=== PATIENT | female | born 1965 | race Caucasian/White ===

== ENCOUNTER → 2018-01-25 | Outpatient (CLI) | payer OTHER ==
--- NOTE | 2018-01-25 13:43 | US ---
EXAMINATION TYPE: US pelvis complete transvag DATE OF EXAM: 01/25/2018 COMPARISON: 03/30/16 pelvic ultrasound CLINICAL HISTORY: N93.8 abnormal uterine and vaginal bleeding. TECHNIQUE: Transvaginal (TV) and Transabdominal (TA) . Transabdominal sonographic images of the pel vis were acquired. Transvaginal sonographic images were medically necessary to better assess the fol lowing anatomy: all Date of LMP: 01/22/2018 EXAM MEASUREMENTS: Uterus: 11.8 x 7.2 x 8.2 cm Endometrial Stripe: 2.3 cm Right Ovary: 3.1 x 3.5 x 3.5 cm Left Ovary: not identified 1. Uterus: large, bulky uterus, parenchymal changes probable fibroids 2. Endometrium: thickened 3. Right Ovary: wnl 4. Left Ovary: not identified 5. Bilateral Adnexa: wnl 6. Posterior cul-de-sac: no free fluid Exam noted suboptimal per technologist. Prominent bulky uterus redemonstrated.. IMPRESSION: Probable fibroid uterus with bulky lobulated contour redemonstrated. Fibroids can be bett er evaluated and characterized with dedicated pelvic MRI if desired.
== END | disposition home or self-care (01) ==
LOC: RADUSWWP 13:01
PROVIDERS: ATTEND Obstetrics & Gynecology
DX: N93.8 Other specified abnormal uterine and vaginal bleeding (principal)
CPT/HCPCS: 76830; 76856; 82670; 83001; 83002; 84146; 84443

== ENCOUNTER → 2018-03-23 | Outpatient (CLI) | payer OTHER ==
[2018-03-23 17:49] LABS: HCT 38.6 % (34.0-46.0); HGB 12.6 gm/dL (11.4-16.0); MCH 31.7 pg (25.0-35.0); MCHC 32.7 g/dL (31.0-37.0); MCV 96.9 fL (80.0-100.0); Mean Platelet Volume 7.1; Platelet Count 114 k/uL (150-450); RBC 3.99 m/uL (3.80-5.40); RDW 12.8 % (11.5-15.5); WBC 4.4 k/uL (3.8-10.6)
[2018-03-23 18:18] LABS: Band Neutrophils % 1 %; Basophils # (M) 0.04 k/uL (0-0.2); Eosinophils # (M) 0.26 k/uL (0-0.7); Lymphocytes # (M) 1.19 k/uL (1.0-4.8); Neutrophils % (M) 56 %; Nucleated Red Blood Cells 0 /100 WBC (0-0); Total Cells Counted 100
== END | disposition home or self-care (01) ==
LOC: LABPAT 16:47
PROVIDERS: ATTEND Obstetrics & Gynecology
DX: Z01.818 Encounter for other preprocedural examination (principal); Z01.812 Encounter for preprocedural laboratory examination
CPT/HCPCS: 85025; 93005

== ENCOUNTER 2018-03-29 08:33 | Day surgery (SDC) | payer OTHER ==
[2018-03-27 14:16] VITALS: BMI 33.8
--- NOTE | 2018-03-28 16:41 | P.HPOB ---
History of Present Illness H&P Date: 03/28/18 Chief Complaint: Intermenstrual bleeding history of hyperplasia Geovanna is a 52-year-old female with a prior history of simple hyperplasia. She had stopped the medication for her hyperplasia and was to follow-up and have reevaluation studies but did not do so. However, she has not gone a year without menses and likely this represents dysfunctional bleeding and not postmenopausal bleeding. We'll plan D&C with hysteroscopy with long-term decisions based on findings at time of surgery. Risks/benefits/alternatives to D&C with hysteroscopy were explained to the patient in detail and all questions were answered for her prior to proceeding to the operating room. Past Medical History Past Medical History: GERD/Reflux, Hypertension Additional Past Medical History / Comment(s): hx. migraines, heavy, frequent periods History of Any Multi-Drug Resistant Organisms: None Reported Past Surgical History: Breast Surgery Additional Past Surgical History / Comment(s): breast biopsy, D & C Past Anesthesia/Blood Transfusion Reactions: No Reported Reaction Smoking Status: Never smoker - Past Family History Mother Family Medical History: No Reported History Medications and Allergies Home Medications Medication Instructions Recorded Confirmed Type ALPRAZolam [Xanax] 0.25 mg PO TID PRN 10/06/14 03/27/18 History Nadolol [Corgard] 40 mg PO BID 10/06/14 03/27/18 History Sertraline [Zoloft] 100 mg PO QAM 10/06/14 03/27/18 History Acetaminophen Tab [Tylenol Tab] 500 - 1,000 mg PO Q6HR PRN 03/27/18 03/27/18 History Ibuprofen [Motrin] 200 - 400 mg PO Q6HR PRN 03/27/18 03/27/18 History Omeprazole [PriLOSEC] 20 mg PO AC-BRKFST 03/27/18 03/27/18 History Allergies Allergy/AdvReac Type Severity Reaction Status Date / Time No Known Allergies Allergy Verified 03/27/18 14:07 Exam Osteopathic Statement: *. No significant issues noted on an osteopathic structural exam other than those noted in the History and Physical/Consult. - OBG Physical Exam Breast: both: normal (no masses) Abdomen: bowel sounds normal, no diffuse tenderness, no bruit present, no guarding noted, no hepatomegaly, no splenomegaly, no mass Vulva: both: normal Vagina: normal moisture, no discharge Cervix: no lesion, no discharge Uterus: normal size, normal contour Adnexa: both: normal Anus/Rectum: normal perianal skin, no rectal mass, no hemorrhoids, heme negative
[~2018-03-29 08:33] MED LIST: DEXAMETHASONE SOD PHOSPHATE 10 MG/ML 1 ML VIAL IV ONE; LACTATED RINGERS 1,000 ML IV SCH; MIDAZOLAM 2 MG/2 ML VIAL IV PRN; ONDANSETRON 4 MG/2 ML VIAL IVP ONE; Pre Op ABX Message 1 EACH MISC MISCELLANE ONE; SCOPOLAMINE 1.5MG/72HR PATCH TRANSDERM ONE
[2018-03-29] MEDS ORDERED: KETOROLAC 30 MG/ML 1 ML VIAL ONE (09:29)
[2018-03-29] MEDS ORDERED: LIDOCAINE 1% INJ 10MG/ML (20 ML MDV) ONE (09:29)
[2018-03-29] MEDS ORDERED: PROPOFOL 10 MG/ML 20 ML VIAL IV ONE (09:29)
[2018-03-29] MEDS ORDERED: MIDAZOLAM 2 MG/2 ML VIAL ONE (09:29)
[2018-03-29] MEDS ORDERED: SUCCINYLCHOLINE CHLORIDE VIAL 200 MG/10 ML VIAL IV ONE (09:29)
[2018-03-29] MEDS ORDERED: fentaNYL (PF) 50 MCG/ML 2 ML AMP ONE (09:29)
--- NOTE | 2018-03-29 09:59 | P.OP ---
Date of Procedure: 03/29/18 Preoperative Diagnosis: Menorrhagia with history of simple hyperplasia Postoperative Diagnosis: Same Procedure(s) Performed: D&C with hysteroscopy Anesthesia: ALBA Surgeon: Nikko Michael Estimated Blood Loss (ml): 4 Pathology: other (Uterine curettings) Condition: stable Disposition: same day Operative Findings: Proliferative endometrium Description of Procedure: Patient was taken to the operative suite where a general anesthetic was found be adequate. She was prepped and draped in the normal sterile fashion and placed in dorsal lithotomy position. Initially a weighted speculum was inserted into the vagina and the anterior lip of the cervix was grasped with an Allis clamp. Cervix was dilated and uterus was sounded to 10 cm. Camera was inserted and observations were noted. Once this was accomplished camera was removed and sharp curettings of endometrium were collected placed on Telfa and sent to pathology for evaluation. All instruments were then removed. Sponge, lap, needle counts were correct 2. Patient was then taken to the recovery room in stable and satisfactory condition. Plan - Discharge Summary New Discharge Prescriptions: New Ibuprofen [Motrin] 600 mg PO Q6HR PRN #30 tab PRN Reason: Pain No Action Sertraline [Zoloft] 100 mg PO QAM Nadolol [Corgard] 40 mg PO BID ALPRAZolam [Xanax] 0.25 mg PO TID PRN PRN Reason: Anxiety Ibuprofen [Motrin] 200 - 400 mg PO Q6HR PRN PRN Reason: Pain Acetaminophen Tab [Tylenol Tab] 500 - 1,000 mg PO Q6HR PRN PRN Reason: Pain Omeprazole [PriLOSEC] 20 mg PO AC-BRKFST Discharge Medication List ALPRAZolam [Xanax] 0.25 mg PO TID PRN 10/06/14 [History] Nadolol [Corgard] 40 mg PO BID 10/06/14 [History] Sertraline [Zoloft] 100 mg PO QAM 10/06/14 [History] Acetaminophen Tab [Tylenol Tab] 500 - 1,000 mg PO Q6HR PRN 03/27/18 [History] Ibuprofen [Motrin] 200 - 400 mg PO Q6HR PRN 03/27/18 [History] Omeprazole [PriLOSEC] 20 mg PO AC-BRKFST 03/27/18 [History] Ibuprofen [Motrin] 600 mg PO Q6HR PRN #30 tab 03/29/18 [Rx] Follow up Appointment(s)/Referral(s): Nikko Michael DO [Doctor of Osteopathic Medicine] - 2 Weeks Activity/Diet/Wound Care/Special Instructions: No heavy lifting, limit stairs and driving, and pelvic rest. If any high temperatures, heavy bleeding, or severe pain call my office Discharge Disposition: HOME SELF-CARE
[2018-03-29] MEDS: HYDROmorphone 0.5 MG/0.5 ML SYRINGE IVP PRN ×2 (10:11→10:22)
[2018-03-29 10:14] VITALS: TEMP 97.1
[2018-03-29 11:04] VITALS: RESP 16
[2018-03-29 11:20] VITALS: BP 137/76; PULSE 68
== END 2018-03-29 11:38 | disposition home or self-care (01) ==
LOC: OR 08:33
PROVIDERS: ATTEND Obstetrics & Gynecology
DX: N85.00 Endometrial hyperplasia, unspecified (principal); N92.0 Excessive and frequent menstruation with regular cycle; G43.909 Migraine, unspecified, not intractable, without status migrainosus; K21.9 Gastro-esophageal reflux disease without esophagitis; I10 Essential (primary) hypertension; Z79.899 Other long term (current) drug therapy
CPT/HCPCS: 81025; 88305; 58558; J2250; J0330; J1100; J2405; J2001; J3010; J1885; J2704; J1170

== ENCOUNTER → 2018-06-11 | Outpatient (CLI) | payer OTHER ==
[2018-06-11 12:36] LABS: Partial Thromboplastin Time 26.2 sec (22.0-30.0); Prothrombin Time 10.6 sec (9.0-12.0)
[2018-06-11 12:52] LABS: Basophils % (A) 1 %; Eosinophils # (A) 0.2 k/uL (0-0.7); Eosinophils % (A) 5 %; HCT 42.9 % (34.0-46.0); HGB 13.9 gm/dL (11.4-16.0); Lymphocytes # (A) 1.7 k/uL (1.0-4.8); Lymphocytes % (A) 36 %; MCH 29.9 pg (25.0-35.0); MCHC 32.4 g/dL (31.0-37.0); MCV 92.2 fL (80.0-100.0); Mean Platelet Volume 6.8; Monocytes # (A) 0.3 k/uL (0-1.0); Monocytes % (A) 6 %; Neutrophils # (A) 2.5 k/uL (1.3-7.7); Neutrophils % (A) 51 %; Platelet Count 151 k/uL (150-450); RBC 4.65 m/uL (3.80-5.40); RDW 14.6 % (11.5-15.5); WBC 4.8 k/uL (3.8-10.6)
[2018-06-11 15:54] LABS: Albumin 4.7 g/dL (3.80-4.90); Albumin/Globulin Ratio 1.68 (1.20-2.10); Anion Gap 8.4 mmol/L (4.00-12.00); Calcium 10.4 mg/dL (8.7-10.3); Carbon Dioxide 26.6 mmol/L (21.6-31.8); Globulin 2.8 g/dL (1.6-3.3); Potassium 4.5 mmol/L (3.5-5.5); Total Bilirubin 0.7 mg/dL (0.3-1.2); Total Protein 7.5 g/dL (6.2-8.2)
== END | disposition home or self-care (01) ==
LOC: LABWHC1 11:46
PROVIDERS: ATTEND Obstetrics & Gynecology
DX: N85.02 Endometrial intraepithelial neoplasia [EIN] (principal)
CPT/HCPCS: 36415; 80053; 85025; 85610; 85730

== ENCOUNTER 2018-06-29 13:58 | Emergency (ER) | payer OTHER ==
[2018-06-29 14:20] VITALS: TEMP 98.8
[2018-06-29] MEDS ORDERED: SODIUM CHLORIDE 0.9% 1,000 ML IV STA ×2 (15:25→16:31)
[2018-06-29] MEDS ORDERED: ONDANSETRON 4 MG/2 ML VIAL IVP STA (15:39)
[2018-06-29] MEDS ORDERED: MORPHINE SULFATE 4 MG/ML SYRINGE IVP STA ×2 (15:39→18:54)
--- NOTE | 2018-06-29 16:01 | ED ---
Female Urogenital HPI - General Chief complaint: Vaginal Bleeding Stated complaint: post op bleeding Time Seen by Provider: 06/29/18 15:23 Source: patient, RN notes reviewed, old records reviewed Mode of arrival: EMS Limitations: no limitations - History of Present Illness Initial comments: This is a 52-year-old female the ER for evaluation. Patient resents today for evaluation regards to vaginal bleeding. Patient is postop of a hysterectomy. No blood thinners. No abdominal pain no fevers. No nausea vomiting or diarrhea. Patient states she has some significant bleeding in the toilet while going to the bathroom earlier today, passed a few clots and the bleeding is pretty much stopped on arrival to emergency room. She really doesn't feel lightheaded and dizzy currently has no complaints. No complaints of shortness of breath. Patient did admit to getting a little sweaty during the event MD Complaint: vaginal bleeding (Postoperatively) -: hour(s) Location: other (No pain) Severity: moderate Severity scale (1-10): 3 Quality: cramping (Similar to her postop pain) Consistency: now resolved Worsens with: none Patient : No Associated Symptoms: vaginal bleeding - Related Data Home Medications Medication Instructions Recorded Confirmed Nadolol [Corgard] 40 mg PO BID 10/06/14 06/29/18 Sertraline [Zoloft] 100 mg PO QAM 10/06/14 06/29/18 Omeprazole [PriLOSEC] 20 mg PO AC-BRKFST 03/27/18 06/29/18 Allergies Allergy/AdvReac Type Severity Reaction Status Date / Time No Known Allergies Allergy Verified 06/29/18 14:27 Review of Systems ROS Statement: Those systems with pertinent positive or pertinent negative responses have been documented in the HPI. ROS Other: All systems not noted in ROS Statement are negative. Past Medical History Past Medical History: GERD/Reflux, Hypertension Additional Past Medical History / Comment(s): hx. migraines, heavy, frequent periods History of Any Multi-Drug Resistant Organisms: None Reported Past Surgical History: Breast Surgery Additional Past Surgical History / Comment(s): breast biopsy, D & C Past Anesthesia/Blood Transfusion Reactions: No Reported Reaction Past Psychological History: Anxiety, Depression Smoking Status: Never smoker - Past Family History Mother Family Medical History: No Reported History General Exam Limitations: no limitations General appearance: alert, in no apparent distress Head exam: Present: atraumatic, normocephalic, normal inspection Eye exam: Present: normal appearance, PERRL, EOMI. Absent: scleral icterus, conjunctival injection, periorbital swelling ENT exam: Present: normal exam, mucous membranes moist Neck exam: Present: normal inspection. Absent: tenderness, meningismus, lymphadenopathy Respiratory exam: Present: normal lung sounds bilaterally. Absent: respiratory distress, wheezes, rales, rhonchi, stridor Cardiovascular Exam: Present: regular rate, normal rhythm, normal heart sounds. Absent: systolic murmur, diastolic murmur, rubs, gallop, clicks GI/Abdominal exam: Present: soft, normal bowel sounds. Absent: distended, tenderness, guarding, rebound, rigid Extremities exam: Present: normal inspection, full ROM, normal capillary refill. Absent: tenderness, pedal edema, joint swelling, calf tenderness Back exam: Present: normal inspection Neurological exam: Present: alert, oriented X3, CN II-XII intact Psychiatric exam: Present: normal affect, normal mood Skin exam: Present: warm, dry, intact, normal color. Absent: rash Course Vital Signs 06/29/18 06/29/18 06/29/18 14:13 14:17 14:30 Temperature 98.8 F Pulse Rate 64 67 Respiratory 20 Rate Blood Pressure 122/60 122/60 122/60 O2 Sat by Pulse 98 98 99 Oximetry 06/29/18 06/29/18 06/29/18 15:00 15:30 16:00 Temperature Pulse Rate 71 67 66 Respiratory Rate Blood Pressure 98/63 113/77 133/57 O2 Sat by Pulse 98 100 99 Oximetry 06/29/18 06/29/18 06/29/18 16:30 17:00 17:30 Temperature Pulse Rate 56 L 58 L Respiratory Rate Blood Pressure 145/73 116/59 130/67 O2 Sat by Pulse 100 Oximetry 06/29/18 06/29/18 18:00 18:30 Temperature Pulse Rate 66 63 Respiratory Rate Blood Pressure 137/80 122/69 O2 Sat by Pulse 99 97 Oximetry - Reevaluation(s) Reevaluation #1: 06/29/18 18:48 Medical record is reviewed Reevaluation #2: 06/29/18 18:48 Patient is asymptomatic Reevaluation #3: 06/29/18 18:48 Patient has not had any significant bleeding here in the ER Medical Decision Making - Medical Decision Making 52 female the ER with postop vaginal bleeding. Patient is postop of a hysterectomy. No pain no fever labwork is normal he will is stable vital signs are normal and stable. CT negative and patient can be discharged home - Lab Data Result diagrams: 06/29/18 14:26 06/29/18 14:26 Lab Results 06/29/18 06/29/18 06/29/18 Range/Units 14:26 14:26 14:26 WBC 9.8 (3.8-10.6) k/uL RBC 3.78 L (3.80-5.40) m/uL Hgb 11.4 (11.4-16.0) gm/dL Hct 34.2 (34.0-46.0) % MCV 90.5 (80.0-100.0) fL MCH 30.2 (25.0-35.0) pg MCHC 33.4 (31.0-37.0) g/dL RDW 14.7 (11.5-15.5) % Plt Count 195 (150-450) k/uL Neutrophils % 77 % Lymphocytes % 16 % Monocytes % 3 % Eosinophils % 2 % Basophils % 0 % Neutrophils # 7.5 (1.3-7.7) k/uL Lymphocytes # 1.5 (1.0-4.8) k/uL Monocytes # 0.3 (0-1.0) k/uL Eosinophils # 0.2 (0-0.7) k/uL Basophils # 0.0 (0-0.2) k/uL PT (9.0-12.0) sec INR (<1.2) APTT (22.0-30.0) sec Sodium 136 L (137-145) mmol/L Potassium 4.9 (3.5-5.1) mmol/L Chloride 101 (98-107) mmol/L Carbon Dioxide 22 (22-30) mmol/L Anion Gap 13 mmol/L BUN 16 (7-17) mg/dL Creatinine 0.59 (0.52-1.04) mg/dL Est GFR (CKD-EPI)AfAm >90 (>60 ml/min/1.73 sqM) Est GFR (CKD-EPI)NonAf >90 (>60 ml/min/1.73 sqM) Glucose 261 H (74-99) mg/dL Plasma Lactic Acid Andrei (0.7-2.0) mmol/L Calcium 9.6 (8.4-10.2) mg/dL Phosphorus 5.4 H (2.5-4.5) mg/dL Magnesium 1.6 (1.6-2.3) mg/dL Total Bilirubin 0.9 (0.2-1.3) mg/dL AST 219 H (14-36) U/L ALT 154 H (9-52) U/L Alkaline Phosphatase 131 H (38-126) U/L Total Creatine Kinase <20 L (30-135) U/L CK-MB (CK-2) <0.2 (0.0-2.4) ng/mL CK-MB (CK-2) Rel Index Troponin I <0.012 (0.000-0.034) ng/mL Total Protein 7.0 (6.3-8.2) g/dL Albumin 3.8 (3.5-5.0) g/dL Urine Color Urine Appearance (Clear) Urine pH (5.0-8.0) Ur Specific Shiner (1.001-1.035) Urine Protein (Negative) Urine Glucose (UA) (Negative) Urine Ketones (Negative) Urine Blood (Negative) Urine Nitrite (Negative) Urine Bilirubin (Negative) Urine Urobilinogen (<2.0) mg/dL Ur Leukocyte Esterase (Negative) Urine RBC (0-5) /hpf Urine WBC (0-5) /hpf Ur Squamous Epith Cells (0-4) /hpf Hyaline Casts (0-2) /lpf Urine Mucus (None) /hpf Blood Type Blood Type Recheck Antibody Screen Spec Expiration Date 06/29/18 06/29/18 06/29/18 Range/Units 14:26 14:26 14:26 WBC (3.8-10.6) k/uL RBC (3.80-5.40) m/uL Hgb (11.4-16.0) gm/dL Hct (34.0-46.0) % MCV (80.0-100.0) fL MCH (25.0-35.0) pg MCHC (31.0-37.0) g/dL RDW (11.5-15.5) % Plt Count (150-450) k/uL Neutrophils % % Lymphocytes % % Monocytes % % Eosinophils % % Basophils % % Neutrophils # (1.3-7.7) k/uL Lymphocytes # (1.0-4.8) k/uL Monocytes # (0-1.0) k/uL Eosinophils # (0-0.7) k/uL Basophils # (0-0.2) k/uL PT 10.6 (9.0-12.0) sec INR 1.0 (<1.2) APTT 24.3 (22.0-30.0) sec Sodium (137-145) mmol/L Potassium (3.5-5.1) mmol/L Chloride (98-107) mmol/L Carbon Dioxide (22-30) mmol/L Anion Gap mmol/L BUN (7-17) mg/dL Creatinine (0.52-1.04) mg/dL Est GFR (CKD-EPI)AfAm (>60 ml/min/1.73 sqM) Est GFR (CKD-EPI)NonAf (>60 ml/min/1.73 sqM) Glucose (74-99) mg/dL Plasma Lactic Acid Andrei 4.2 H* (0.7-2.0) mmol/L Calcium (8.4-10.2) mg/dL Phosphorus (2.5-4.5) mg/dL Magnesium (1.6-2.3) mg/dL Total Bilirubin (0.2-1.3) mg/dL AST (14-36) U/L ALT (9-52) U/L Alkaline Phosphatase (38-126) U/L Total Creatine Kinase (30-135) U/L CK-MB (CK-2) (0.0-2.4) ng/mL CK-MB (CK-2) Rel Index Troponin I (0.000-0.034) ng/mL Total Protein (6.3-8.2) g/dL Albumin (3.5-5.0) g/dL Urine Color Urine Appearance (Clear) Urine pH (5.0-8.0) Ur Specific Shiner (1.001-1.035) Urine Protein (Negative) Urine Glucose (UA) (Negative) Urine Ketones (Negative) Urine Blood (Negative) Urine Nitrite (Negative) Urine Bilirubin (Negative) Urine Urobilinogen (<2.0) mg/dL Ur Leukocyte Esterase (Negative) Urine RBC (0-5) /hpf Urine WBC (0-5) /hpf Ur Squamous Epith Cells (0-4) /hpf Hyaline Casts (0-2) /lpf Urine Mucus (None) /hpf Blood Type A Positive Blood Type Recheck No Antibody Screen NEGATIVE Spec Expiration Date 07/02/2018 - 232506/29/18 Range/Units 17:35 WBC (3.8-10.6) k/uL RBC (3.80-5.40) m/uL Hgb (11.4-16.0) gm/dL Hct (34.0-46.0) % MCV (80.0-100.0) fL MCH (25.0-35.0) pg MCHC (31.0-37.0) g/dL RDW (11.5-15.5) % Plt Count (150-450) k/uL Neutrophils % % Lymphocytes % % Monocytes % % Eosinophils % % Basophils % % Neutrophils # (1.3-7.7) k/uL Lymphocytes # (1.0-4.8) k/uL Monocytes # (0-1.0) k/uL Eosinophils # (0-0.7) k/uL Basophils # (0-0.2) k/uL PT (9.0-12.0) sec INR (<1.2) APTT (22.0-30.0) sec Sodium (137-145) mmol/L Potassium (3.5-5.1) mmol/L Chloride (98-107) mmol/L Carbon Dioxide (22-30) mmol/L Anion Gap mmol/L BUN (7-17) mg/dL Creatinine (0.52-1.04) mg/dL Est GFR (CKD-EPI)AfAm (>60 ml/min/1.73 sqM) Est GFR (CKD-EPI)NonAf (>60 ml/min/1.73 sqM) Glucose (74-99) mg/dL Plasma Lactic Acid Andrei (0.7-2.0) mmol/L Calcium (8.4-10.2) mg/dL Phosphorus (2.5-4.5) mg/dL Magnesium (1.6-2.3) mg/dL Total Bilirubin (0.2-1.3) mg/dL AST (14-36) U/L ALT (9-52) U/L Alkaline Phosphatase (38-126) U/L Total Creatine Kinase (30-135) U/L CK-MB (CK-2) (0.0-2.4) ng/mL CK-MB (CK-2) Rel Index Troponin I (0.000-0.034) ng/mL Total Protein (6.3-8.2) g/dL Albumin (3.5-5.0) g/dL Urine Color Yellow Urine Appearance Clear (Clear) Urine pH 6.5 (5.0-8.0) Ur Specific Shiner 1.013 (1.001-1.035) Urine Protein Negative (Negative) Urine Glucose (UA) Negative (Negative) Urine Ketones Negative (Negative) Urine Blood Moderate H (Negative) Urine Nitrite Negative (Negative) Urine Bilirubin Negative (Negative) Urine Urobilinogen <2.0 (<2.0) mg/dL Ur Leukocyte Esterase Small H (Negative) Urine RBC 89 H (0-5) /hpf Urine WBC 2 (0-5) /hpf Ur Squamous Epith Cells <1 (0-4) /hpf Hyaline Casts 13 H (0-2) /lpf Urine Mucus Rare H (None) /hpf Blood Type Blood Type Recheck Antibody Screen Spec Expiration Date - EKG Data -: EKG Interpreted by Me (EKG shows sinus bradycardia rate of 58, OR 1:30, QRS 80, QTC 426) - Radiology Data Radiology results: report reviewed (CT abdomen pelvis is negative for acute disease), image reviewed Disposition Clinical Impression: Vaginal bleeding, Postoperative vaginal bleeding Disposition: HOME SELF-CARE Condition: Good Instructions: Postoperative Bleeding (ED) Is patient prescribed a controlled substance at d/c from ED?: No Referrals: Bubba Cruz MD [Primary Care Provider] - 1-2 days
[2018-06-29 16:03] LABS: Basophils % (A) 0 %; Eosinophils # (A) 0.2 k/uL (0-0.7); Eosinophils % (A) 2 %; HCT 34.2 % (34.0-46.0); HGB 11.4 gm/dL (11.4-16.0); Lymphocytes # (A) 1.5 k/uL (1.0-4.8); Lymphocytes % (A) 16 %; MCH 30.2 pg (25.0-35.0); MCHC 33.4 g/dL (31.0-37.0); MCV 90.5 fL (80.0-100.0); Monocytes # (A) 0.3 k/uL (0-1.0); Monocytes % (A) 3 %; Neutrophils # (A) 7.5 k/uL (1.3-7.7); Neutrophils % (A) 77 %; Platelet Count 195 k/uL (150-450); RBC 3.78 m/uL (3.80-5.40); RDW 14.7 % (11.5-15.5); WBC 9.8 k/uL (3.8-10.6)
[2018-06-29 16:15] LABS: ALT 154 U/L (9-52); AST 219 U/L (14-36); Albumin 3.8 g/dL (3.5-5.0); Alkaline Phosphatase 131 U/L (38-126); Anion Gap 13 mmol/L; Blood Urea Nitrogen 16 mg/dL (7-17); Calcium 9.6 mg/dL (8.4-10.2); Carbon Dioxide 22 mmol/L (22-30); Chloride 101 mmol/L (98-107); Glucose 261 mg/dL (74-99); Magnesium 1.6 mg/dL (1.6-2.3); Phosphorus 5.4 mg/dL (2.5-4.5); Potassium 4.9 mmol/L (3.5-5.1); Sodium 136 mmol/L (137-145); Total Bilirubin 0.9 mg/dL (0.2-1.3)
[2018-06-29 16:18] LABS: Creatine Kinase <20 U/L (30-135); Partial Thromboplastin Time 24.3 sec (22.0-30.0); Prothrombin Time 10.6 sec (9.0-12.0)
[2018-06-29 16:31] LABS: Creatine Kinase MB <0.2 ng/mL (0.0-2.4); Troponin I <0.012 ng/mL (0.000-0.034)
[2018-06-29 17:58] LABS: Appearance,Urine Clear (Clear); Bilirubin,Urine Negative (Negative); Blood,Urine Moderate (Negative); Color,Urine Yellow; Glucose,Urine (UA) Negative (Negative); Hyaline Casts,Urine 13 /lpf (0-2); Ketones,Urine Negative (Negative); Leukocyte Esterase,Urine Small (Negative); Mucus,Urine Rare /hpf; Nitrite,Urine Negative (Negative); PH, Urine 6.5 (5.0-8.0); Protein,Urine Negative (Negative); RBC,Urine 89 /hpf (0-5); Specific Gravity,Urine 1.013 (1.001-1.035); Squamous Epithelial Cell,Urine <1 /hpf (0-4); Urobilinogen,Urine <2.0 mg/dL (<2.0); WBC,Urine 2 /hpf (0-5)
[2018-06-29 18:40] VITALS: BP 122/69
[2018-06-29 19:25] VITALS: PULSE 64; RESP 18
--- NOTE | 2018-06-29 19:39 | CT ---
EXAMINATION TYPE: CT abdomen pelvis w con DATE OF EXAM: 06/29/2018 COMPARISON: None INDICATION: Post op bleeding after hysterectomy. DLP: 1243.9 mGycm, Automated exposure control for dose reduction was used. CONTRAST: 100ml mL of Isovue 300. Study performed without Oral Contrast TECHNIQUE: Axial images were obtained from above the diaphragm to the pubic rami in the axial plane a t 5 mm thick sections. Reconstructed images are reviewed on the computer in the coronal plane. FINDINGS: Limited CT sections are obtained the lung bases. The lung bases are clear. CT ABDOMEN: Liver: There is mild diffuse fatty infiltration to the liver. Spleen: Normal Pancreas: Normal Adrenal glands: The adrenal glands are normal. Gallbladder: Normal Kidneys: No masses are evident. No hydronephrosis is present. No cysts are present. Delayed images were obtained through the kidneys, which remain unremarkable. Aorta: Vascular calcification is within the aorta. Inferior vena cava: Normal. CT PELVIS: Loops of bowel within the abdomen and pelvis are normal. There are scattered diverticuli within t he sigmoid colon. Appendix: Normal as visualized. Urinary bladder: Normal. Genitourinary structures: Uterus is surgically absent. At the vaginal cuff there is an air collection with a small amount of lower density in the dependent portion. A small seroma could be considered at this site. Mild postsurgical changes are present adjacent. Suspicious wall thickening to suggest abs cess is not identified. This area measures maximum 4.6 x 3.6 cm. Adnexal regions appear unremarkable. The ovaries are not identified. Osseous structures: No suspicious lytic or sclerotic lesions. IMPRESSIONS: 1. Suspected postsurgical change with possible seroma with an air-fluid level in the vaginal cuff re gion. Abscess is considered less likely at this time. Follow-up can be performed as clinically indica geovanna.
[2018-06-29] MEDS ORDERED: Acetaminophen-Codeine 300-30mg TAB PO STA (20:13)
[2018-06-29] MEDS ORDERED: ACET/COD 300 MG/30 MG STARTER PACK 6 TAB BTL PO STA (20:13)
== END 2018-06-29 20:34 | disposition home or self-care (01) ==
LOC: EC 13:58
DX: N99.820 Postprocedural hemorrhage of a genitourinary system organ or structure following a genitourinary system procedure (principal); K21.9 Gastro-esophageal reflux disease without esophagitis; I10 Essential (primary) hypertension; F41.9 Anxiety disorder, unspecified; F32.9 Major depressive disorder, single episode, unspecified; Z79.899 Other long term (current) drug therapy; Z90.710 Acquired absence of both cervix and uterus; Z98.890 Other specified postprocedural states
CPT/HCPCS: 36415; 93005; 86900; 86901; 80053; 82550; 82553; 83605; 83735; 84100; 84484; 85025; 85610; 85730; 86850; 81001; 87086; 74177; 99285; 96374; 96375; 96376; 96361 ×2; J2270; J2405; Q9967

== ENCOUNTER 2018-08-27 18:33 | Emergency (ER) | payer OTHER ==
[2018-08-27 18:57] VITALS: TEMP 98.3
[2018-08-27] MEDS ORDERED: HYDROcodone/APAP 7.5-325MG 1 EACH TAB PO ONE (19:47)
[2018-08-27 20:02] LABS: Anisocytosis Slight; Basophils % (A) 0 %; Eosinophils # (A) 0.2 k/uL (0-0.7); Eosinophils % (A) 3 %; HCT 35.6 % (34.0-46.0); HGB 10.9 gm/dL (11.4-16.0); Hypochromasia Marked; Lymphocytes # (A) 1.3 k/uL (1.0-4.8); Lymphocytes % (A) 21 %; MCH 24.5 pg (25.0-35.0); MCHC 30.6 g/dL (31.0-37.0); Mean Platelet Volume 7.3; Monocytes # (A) 0.3 k/uL (0-1.0); Monocytes % (A) 5 %; Neutrophils # (A) 4.4 k/uL (1.3-7.7); Neutrophils % (A) 69 %; Platelet Count 187 k/uL (150-450); Poikilocytosis Slight; RBC 4.44 m/uL (3.80-5.40); RDW 16.2 % (11.5-15.5); WBC 6.3 k/uL (3.8-10.6)
[2018-08-27 20:08] LABS: MCV 80.1 fL (80.0-100.0)
[2018-08-27 20:16] LABS: ALT 178 U/L (9-52); AST 173 U/L (14-36); Albumin 4.5 g/dL (3.5-5.0); Alkaline Phosphatase 143 U/L (38-126); Anion Gap 12 mmol/L; Blood Urea Nitrogen 14 mg/dL (7-17); Calcium 9.8 mg/dL (8.4-10.2); Carbon Dioxide 23 mmol/L (22-30); Chloride 101 mmol/L (98-107); Glucose 141 mg/dL (74-99); Potassium 4.8 mmol/L (3.5-5.1); Sodium 136 mmol/L (137-145); Total Protein 8.1 g/dL (6.3-8.2)
--- NOTE | 2018-08-27 20:22 | CT ---
EXAMINATION TYPE: CT brain abner deshpande DATE OF EXAM: 08/27/2018 COMPARISON: NONE HISTORY: Posterior head/neck pain after fall injury CT DLP: 1502.8 mGycm. Automated Exposure Control for Dose Reduction was Utilized. TECHNIQUE: CT scan of the head and cervical spine are performed without contrast. FINDINGS: There is no acute intracranial hemorrhage or midline shift identified. Mild generalized a ge-related atrophy is present. The globes are intact and the visualized sinuses are clear. There is moderate to large size high acute occipital scalp hematoma extending to right and left of midline see n axial images 45 through 57. The calvarium is intact. Cervical spine is visualized in its entirety from C1 through upper thoracic levels and demonstrates s traightened alignment without evidence of acute fracture or dislocation. Prevertebral soft tissue ap pears within normal limits. The C1-C2 articulation is within normal limits on the coronal images. V ertebral body heights and disc space heights are maintained. Axial images show no suspicious abnormal ity. Lung apices are clear. Thyroid gland is normal in size. IMPRESSION: 1. There is no acute fracture or dislocation evident in the cervical spine. 2. No acute intracranial hemorrhage or midline shift is seen. Moderate to large size high posterior a cute scalp hematoma noted.
--- NOTE | 2018-08-27 20:36 | XR ---
EXAMINATION TYPE: XR chest 2V DATE OF EXAM: 08/27/2018 COMPARISON: NONE HISTORY: Chest and right-sided rib pain. TECHNIQUE: Frontal and lateral views of the chest are obtained. FINDINGS: Overlying EKG leads are seen. There is no focal air space opacity, pleural effusion, or pne umothorax seen. The cardiac silhouette size is enlarged. The osseous structures are intact. IMPRESSION: Cardiomegaly without acute pulmonary process.
[2018-08-27] MEDS ORDERED: hydrALAZINE HCL 20 MG/ML 1 ML VIAL IVP STA ×2 (20:37→21:39)
--- NOTE | 2018-08-27 20:38 | XR ---
EXAMINATION TYPE: XR lumbar spine 2 or 3V DATE OF EXAM: 08/27/2018 CLINICAL HISTORY: Low back pain after slip and fall injury. TECHNIQUE: Frontal and lateral images of the lumbar spine are obtained. 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 There are 5 lumbar type vertebral vicki s identified given above assumption. The lumbar spine shows satisfactory alignment without evidence of acute fracture or dislocation. Vertebral body heights and disk space heights are within normal alfredo its. Vascular calcification overlying abdominal aorta is noted. IMPRESSION: No acute fracture or dislocation is seen in the lumbar spine.
[2018-08-27] MEDS ORDERED: ALPRAZolam 1 MG TAB PO STA (21:39)
--- NOTE | 2018-08-27 21:39 | ED ---
Fall HPI - General Chief Complaint: Fall Stated Complaint: FALL, HEAD INJURY Time Seen by Provider: 08/27/18 19:07 Source: patient Mode of arrival: ambulatory - History of Present Illness Initial Comments: 53-year-old female with past medical history of hypertension and anxiety pr esenting today for chief complaint of fall. Patient states yesterday evening she slipped on ice hitting the back of her head. Patient denies loss of consciousness. Patient states she did have a large hematoma. Patient states she was initially dizzy. She states this is since subsided however she has experiencing additional episode when she was turning in bed. Patient denies any neck pain. Patient states she feels she clenched her jaw when she fell she states she almost bit her tongue- and since fall her jaw b/l has been sore with opening and closing. She admits to low back pain. Patient denies any radiation of the pain down her legs. Patient denies any loss of bowel bladder control, urinary retention or loss sensation or muscle weakness of the lower extremities. Patient denies any diplopia, vision loss or changes, she denies any muscle weakness of the upper or lower extremities, nausea vomiting, trauma to the chest, denies upper back pain, chest pain, dyspnea, dsypnea upon exertion. Upon arrival patient is a appearing well. Patient denies any pain of the extremities or injury. Vital signs reveal elevation of blood pressure. Patient states she did take her blood pressure medication today however she states she has increased anxiety and is out of her prescription of xanax. - Related Data Home Medications Medication Instructions Recorded Confirmed Nadolol [Corgard] 40 mg PO BID 10/06/14 08/27/18 Acetaminophen Tab [Tylenol] 650 mg PO Q8H 08/27/18 08/27/18 Sertraline [Zoloft] 100 mg PO BID 08/27/18 08/27/18 Previous Rx's Medication Instructions Recorded ALPRAZolam [Xanax] 0.25 mg PO BID PRN 3 Days #6 tab 08/27/18 Allergies Allergy/AdvReac Type Severity Reaction Status Date / Time No Known Allergies Allergy Verified 08/27/18 20:10 Review of Systems ROS Statement: Those systems with pertinent positive or pertinent negative responses have been documented in the HPI. ROS Other: All systems not noted in ROS Statement are negative. Past Medical History Past Medical History: GERD/Reflux, Hypertension Additional Past Medical History / Comment(s): hx. migraines, heavy, frequent periods History of Any Multi-Drug Resistant Organisms: None Reported Past Surgical History: Breast Surgery Additional Past Surgical History / Comment(s): breast biopsy, D & C Past Anesthesia/Blood Transfusion Reactions: No Reported Reaction Past Psychological History: Anxiety Smoking Status: Never smoker Past Alcohol Use History: Occasional Past Drug Use History: None Reported - Past Family History Mother Family Medical History: No Reported History General Exam - General Exam Comments Initial Comments: General: The patient is awake and alert, in no distress, and does not appear acutely ill. Eye: +3 mm pupils are equal, round and reactive to light, extra-ocular movement s are intact. No nystagmus. There is normal conjunctiva bilaterally. No signs of icterus. Ears, nose, mouth and throat: There are moist mucous membranes and no oral lesi ons. Tympanic membranes within normal limits bilaterally. Neck: The neck is supple, there is no tenderness or JVD. Cardiovascular: There is a regular rate and rhythm. No murmur, rub or gallop is appreciated. Respiratory: Lungs are clear to auscultation, respirations are non-labored, breath sounds are equal. No wheezes, stridor, rales, or rhonchi. Lung sounds present in all huynh. Gastrointestinal: Soft, non-distended, non-tender abdomen without masses or organomegaly noted. There is no rebound or guarding present. Bowel sounds are unremarkable. Musculoskeletal: Normal ROM, no tenderness. Strength 5/5. Sensation intact. Radial pulses equal bilaterally 2+. Neurological: A&O x 3. CN II-XII intact, memory intact to immediately, intermediate and chcf recall. Able to follow simple verbal. Able to name a common object (pen). High quality, labial (pa) and lingual (la) speLight touch and temperature sensation present over the face, chest, abdomen, back, UE bilaterally, and LE bilaterally. Able to localize point during point localization b/l and extinction. No visible bulk atrophy, hypertrophy, fasciculations, or myoclonus of the UE or LE b/l. Full PROM in UE and LE b/l. Bilateral muscle strength 5/5 for the following muscles: deltoid, biceps, triceps, brachioradialis, wrist extensors/flexor, hip flexor, hip abducto rs/adductors, hamstrings, quadriceps, feet dorsiflexors/plantar flexors. Finger to nose, finger to the examiners finger, and heel to malone coordinated and accurate b/l. Coordinated and even demonstration of hand flip, finger to thumb, and toe tap b/l. Gait is coordinated and even in stride. Maintains balance with monopedal stance. (-) Romberg. (-) pronator drift. No nuchal rigidity. Skin: Skin is warm and dry and no rashes or lesions are noted. Large hematoma of the parietal/occipital region. No raccoon or Melgar sign. No crepitus palpation of the scalp. No laceration or abrasion. Psychiatric: Cooperative, appropriate mood & affect, normal judgment. Limitations: no limitations Course Vital Signs 08/27/18 08/27/18 08/27/18 18:53 19:35 20:33 Temperature 98.3 F Pulse Rate 66 67 61 Respiratory 18 18 15 Rate Blood Pressure 202/105 193/119 200/104 O2 Sat by Pulse 99 98 99 Oximetry 08/27/18 08/27/18 08/27/18 21:02 21:56 23:00 Temperature Pulse Rate 66 67 78 Respiratory 16 18 16 Rate Blood Pressure 184/101 186/111 135/70 O2 Sat by Pulse 99 99 97 Oximetry Medical Decision Making - Medical Decision Making Laboratory studies unremarkable, troponin negative. EKG within normal limits. Chest x-ray negative for acute osseous process. Lumbar films no acute osseous injury. CT of the brain and C-spine reveal hematoma no other acute abnormalities. Patient appears well, and blood pressure remains elevated, no other review of systems positive. No signs of end organ damage. Pt stats she is anxious at the doctors. Given xanax. At this time feel patient has concussion as well as soft tissue injury. Patient be discharged with instruction to use ibuprofen and Tylenol palpation and follow-up with primary care provider. Patient requesting refill of Xanax. Patient given 3 day supply. Patient ready for discharge, discussed case with attending provider Dr. Cramer who is agreeable with plan and discharge. Patient aware of return parameters, denies questions at this time. Last recorded BP on space labs witnessed in person upon discssing d/c with patient *163/89. - Lab Data Result diagrams: 08/27/18 19:09 03/11/19 19:09 Lab Results 08/27/18 08/27/18 08/27/18 Range/Units 19:09 19: 19:09 WBC 6.3 (3.8-10.6) k/uL RBC 4.44 (3.80-5.40) m/uL Hgb 10.9 L (11.4-16.0) gm/dL Hct 35.6 (34.0-46.0) % MCV 80.1 D (80.0-100.0) fL MCH 24.5 L (25.0-35.0) pg MCHC 30.6 L (31.0-37.0) g/dL RDW 16.2 H (11.5-15.5) % Plt Count 187 (150-450) k/uL Neutrophils % 69 % Lymphocytes % 21 % Monocytes % 5 % Eosinophils % 3 % Basophils % 0 % Neutrophils # 4.4 (1.3-7.7) k/uL Lymphocytes # 1.3 (1.0-4.8) k/uL Monocytes # 0.3 (0-1.0) k/uL Eosinophils # 0.2 (0-0.7) k/uL Basophils # 0.0 (0-0.2) k/uL Hypochromasia Marked Poikilocytosis Slight Anisocytosis Slight Sodium 136 L (137-145) mmol/L Potassium 4.8 (3.5-5.1) mmol/L Chloride 101 (98-107) mmol/L Carbon Dioxide 23 (22-30) mmol/L Anion Gap 12 mmol/L BUN 14 (7-17) mg/dL Creatinine 0.45 L (0.52-1.04) mg/dL Est GFR (CKD-EPI)AfAm >90 (>60 ml/min/1.73 sqM) Est GFR (CKD-EPI)NonAf >90 (>60 ml/min/1.73 sqM) Glucose 141 H (74-99) mg/dL Calcium 9.8 (8.4-10.2) mg/dL Total Bilirubin 1.0 (0.2-1.3) mg/dL AST 173 H (14-36) U/L ALT 178 H (9-52) U/L Alkaline Phosphatase 143 H (38-126) U/L Troponin I <0.012 (0.000-0.034) ng/mL Total Protein 8.1 (6.3-8.2) g/dL Albumin 4.5 (3.5-5.0) g/dL - EKG Data EKG Comments: A 12-lead EKG was performed and shows the following: Rate is 61bpm, and rhythm is normal sinus. There are normal QRS complexes and normal R-wave progression. ST segments have no elevation or depression, and SC segments appear normal. SC interval 152 ms, QRS duration 78 ms, QT/QTC 412/414 ms. EKG interpreted by myself as well as attending provider Dr. Cramer Disposition Clinical Impression: Fall due to ice or snow, Head injury, Elevated blood pressure reading, Concussion Disposition: HOME SELF-CARE Condition: Good Instructions (If sedation given, give patient instructions): Concussion (ED), Head Injury (ED) Additional Instructions: Please use medication as discussed. Please follow-up with family doctor in the next 2 days, for reevaluation and blood pressure re-check. Please return to emergency room if the symptoms increase or worsen or for any other concerns. Prescriptions: ALPRAZolam [Xanax] 0.25 mg PO BID PRN 3 Days #6 tab PRN Reason: Anxiety Is patient prescribed a controlled substance at d/c from ED?: No Referrals: Bubba Cruz MD [Primary Care Provider] - 1-2 days Time of Disposition: 22:38
[2018-08-27 23:02] VITALS: BP 135/70; PULSE 78; RESP 16
== END 2018-08-27 23:00 | disposition home or self-care (01) ==
LOC: EC 18:33
DX: S06.0X0A Concussion without loss of consciousness, initial encounter (principal); I10 Essential (primary) hypertension; M54.5 Low back pain; F41.9 Anxiety disorder, unspecified; Z86.69 Personal history of other diseases of the nervous system and sense organs; Z98.890 Other specified postprocedural states; Z79.899 Other long term (current) drug therapy; W00.0XXA Fall on same level due to ice and snow, initial encounter
CPT/HCPCS: 36415; 93005; 80053; 84484; 85025; 72100; 71046; 72125; 70450; 99284; 96374; 96376; J0360

== ENCOUNTER → 2019-03-20 | Outpatient (CLI) | payer OTHER ==
[2019-03-20 18:38] LABS: African American GFR (CKD) 114.6 (60.0-200.0); Anion Gap 10.7 mmol/L (4.00-12.00); BUN/Creat Ratio 15.71 Ratio (12.00-20.00); Calcium 9.8 mg/dL (8.7-10.3); Carbon Dioxide 28.3 mmol/L (21.6-31.8); Potassium 4.6 mmol/L (3.5-5.5)
[2019-03-20 21:26] LABS: Hemoglobin A1C 12.9 % (4.0-6.0)
== END | disposition home or self-care (01) ==
LOC: LABWHC1 11:38
PROVIDERS: ATTEND Family Medicine
DX: E11.3299 Type 2 diabetes mellitus with mild nonproliferative diabetic retinopathy without macular edema, unspecified eye (principal)
CPT/HCPCS: 36415; 80048; 83036

== ENCOUNTER 2019-06-04 15:36 | Observation (INO) | payer OTHER, BC ==
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
[2019-06-04] MEDS ORDERED: IBUPROFEN 600 MG TAB PO STA (18:28)
[2019-06-04] MEDS ORDERED: ACET/COD 300 MG/30 MG STARTER PACK 6 TAB BTL PO STA (18:34)
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
[2019-06-04 20:49] LABS: Basophils % (A) 0 %; Eosinophils # (A) 0.1 k/uL (0-0.7); Eosinophils % (A) 3 %; HCT 33.8 % (34.0-46.0); HGB 10.9 gm/dL (11.4-16.0); Lymphocytes # (A) 0.9 k/uL (1.0-4.8); Lymphocytes % (A) 26 %; MCH 28.3 pg (25.0-35.0); MCHC 32.3 g/dL (31.0-37.0); MCV 87.6 fL (80.0-100.0); Mean Platelet Volume 7.7; Monocytes # (A) 0.1 k/uL (0-1.0); Monocytes % (A) 3 %; Neutrophils # (A) 2.4 k/uL (1.3-7.7); Neutrophils % (A) 67 %; Platelet Count 129 k/uL (150-450); RBC 3.86 m/uL (3.80-5.40); RDW 15.2 % (11.5-15.5); WBC 3.6 k/uL (3.8-10.6)
[2019-06-04 20:58] LABS: ALT 121 U/L (4-34); AST 87 U/L (14-36); African American GFR (CKD) >90 (>60 ml/min/1.73 sqM); Albumin 3.4 g/dL (3.5-5.0); Alkaline Phosphatase 97 U/L (38-126); Anion Gap 10 mmol/L; Blood Urea Nitrogen 4 mg/dL (7-17); Calcium 8.1 mg/dL (8.4-10.2); Carbon Dioxide 18 mmol/L (22-30); Chloride 111 mmol/L (98-107); Glucose 168 mg/dL (74-99); Non-African American GFR(CKD) >90 (>60 ml/min/1.73 sqM); Potassium 3.3 mmol/L (3.5-5.1); Sodium 139 mmol/L (137-145); Total Bilirubin 0.6 mg/dL (0.2-1.3); Total Protein 6.3 g/dL (6.3-8.2)
[2019-06-04 21:01] LABS: INR 1.1 (<1.2); Partial Thromboplastin Time 24.7 sec (22.0-30.0); Prothrombin Time 11.2 sec (9.0-12.0)
[2019-06-04] MEDS ORDERED: NALOXONE 0.4 MG/ML 1 ML VIAL IV PRN (21:01)
[2019-06-04] MEDS ORDERED: SODIUM CHLORIDE 0.9% 1,000 ML IV SCH (21:15)
[2019-06-04] MEDS: HYDROcodone/APAP 5-325MG 1 EACH TAB PO PRN ×2 (22:31→22:41)
[2019-06-05] MEDS: HYDROcodone/APAP 5-325MG 1 EACH TAB PO PRN ×4 (02:59→15:32)
[2019-06-05 07:46] VITALS: RESP 17
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
[2019-06-05 15:14] VITALS: BP 161/80; PULSE 60; TEMP 98.5
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
== END 2019-06-05 17:21 | disposition home or self-care (01) ==
LOC: EC 15:36 → 4SSUR 21:03
PROVIDERS: ADMIT Surgery; ATTEND Surgery
DX: S32.029A Unspecified fracture of second lumbar vertebra, initial encounter for closed fracture (principal); V43.52XA Car driver injured in collision with other type car in traffic accident, initial encounter; Y92.410 Unspecified street and highway as the place of occurrence of the external cause; E11.9 Type 2 diabetes mellitus without complications; F41.9 Anxiety disorder, unspecified; I10 Essential (primary) hypertension; S00.83XA Contusion of other part of head, initial encounter; Z79.84 Long term (current) use of oral hypoglycemic drugs; Z82.49 Family history of ischemic heart disease and other diseases of the circulatory system; Z90.710 Acquired absence of both cervix and uterus; Z79.891 Long term (current) use of opiate analgesic
CPT/HCPCS: 99285; 36415; 80053; 85025; 85610; 85730; 80320; 72125; 70450; 71250; 74176; G0378 ×2

== ENCOUNTER 2021-10-25 12:06 | Observation (INO) | payer BC, OTHER ==
[2021-10-25] MEDS ORDERED: HEPARIN SODIUM 1,000 UN/ML (10ML VL) IV PRN (13:37)
[2021-10-25] MEDS ORDERED: HEPARIN SODIUM 1,000 UN/ML (10ML VL) IV ONE (13:37)
[2021-10-25] MEDS ORDERED: DILTIAZEM DRIP BOLUS FROM BAG 1 MG SOLN IV ONE (13:38)
[2021-10-25 13:39] LABS: Basophils # (A) 0.1 k/uL (0-0.2); Basophils % (A) 1 %; Eosinophils # (A) 0.1 k/uL (0-0.7); Eosinophils % (A) 2 %; HCT 51.5 % (34.0-46.0); HGB 16.6 gm/dL (11.4-16.0); Lymphocytes # (A) 1.3 k/uL (1.0-4.8); Lymphocytes % (A) 20 %; MCH 32.1 pg (25.0-35.0); MCHC 32.2 g/dL (31.0-37.0); MCV 99.6 fL (80.0-100.0); Mean Platelet Volume 7.6; Monocytes # (A) 0.3 k/uL (0-1.0); Monocytes % (A) 5 %; Neutrophils # (A) 4.3 k/uL (1.3-7.7); Neutrophils % (A) 69 %; Platelet Count 166 k/uL (150-450); RBC 5.16 m/uL (3.80-5.40); RDW 12.1 % (11.5-15.5); WBC 6.2 k/uL (3.8-10.6)
[2021-10-25 13:42] LABS: ALT 239 U/L (4-34); AST 164 U/L (14-36); African American GFR (CKD) >90 (>60 ml/min/1.73 sqM); Albumin 4.8 g/dL (3.5-5.0); Alkaline Phosphatase 199 U/L (38-126); Anion Gap 15 mmol/L; Blood Urea Nitrogen 10 mg/dL (7-17); Calcium 10.8 mg/dL (8.4-10.2); Carbon Dioxide 20 mmol/L (22-30); Chloride 98 mmol/L (98-107); Glucose 317 mg/dL (74-99); Lipase 111 U/L (23-300); Magnesium 1.3 mg/dL (1.6-2.3); Non-African American GFR(CKD) >90 (>60 ml/min/1.73 sqM); Potassium 4.8 mmol/L (3.5-5.1); Sodium 133 mmol/L (137-145); Total Bilirubin 2.1 mg/dL (0.2-1.3); Total Protein 8.8 g/dL (6.3-8.2)
[2021-10-25] MEDS ORDERED: DILTIAZEM 125 MG in SODIUM CHLORIDE 0.9% 100 ML IV SCH (13:45)
[2021-10-25] MEDS ORDERED: HEPARIN SOD,PORK IN 0.45% NACL 25,000 UNIT in 0.45% NACL 1 250ML.BAG IV SCH (13:45)
[2021-10-25 13:55] LABS: INR 1.1 (<1.2); Partial Thromboplastin Time 26.6 sec (22.0-30.0); Prothrombin Time 11.5 sec (9.0-12.0)
--- NOTE | 2021-10-25 14:02 | XR ---
EXAMINATION TYPE: XR chest 2V DATE OF EXAM: 10/25/2021 COMPARISON: Chest x-ray August 27, 2018. CT chest June 04, 2019 HISTORY: Elevated blood pressure today. Chest pain. TECHNIQUE: Frontal and lateral views of the chest are obtained. FINDINGS: There is no Suspicious new focal air space opacity, pleural effusion, or pneumothorax se en. The cardiac silhouette size is stable and mildly enlarged. Overlying EKG leads are redemonstrate d. The osseous structures are intact. IMPRESSION: Mild cardiomegaly without acute pulmonary process.
--- NOTE | 2021-10-25 14:11 | ED ---
General Adult HPI - General Chief complaint: Recheck/Abnormal Lab/Rx Stated complaint: hypertension Time Seen by Provider: 10/25/21 13:01 Source: patient, RN notes reviewed Mode of arrival: ambulatory Limitations: no limitations - History of Present Illness Initial comments: 56-year-old female presents emergency Department with chief complaint of palpita tions, shortness breath indigestion. Patient states she woke up with some indigestion states she's some Tums omeprazole seemed to improve then she felt like her heart was racing, skipping a beat. She states she felt like she cannot get a full breath in. Patient states that she still feels like her heart racing around. Patient states that she has no history of irregular heartbeat. Patient does admit that her blood pressure was elevated she took multiple times continues to be elevated. She states that she is currently on nadolol. Patient denies any fevers or chills. - Related Data Home Medications Medication Instructions Recorded Confirmed Nadolol [Corgard] 40 mg PO BID 10/06/14 06/04/19 Acetaminophen Tab [Tylenol] 650 mg PO Q8H PRN 08/27/18 06/04/19 ALPRAZolam [Xanax] 0.25 mg PO DAILY PRN 06/04/19 06/04/19 Omeprazole Magnesium [PriLOSEC OTC] 20 mg PO DAILY 06/04/19 06/04/19 guaiFENesin [Mucinex] 600 mg PO Q12H PRN 06/04/19 06/04/19 metFORMIN HCL [Glucophage] 1,000 mg PO BID 06/04/19 06/04/19 Previous Rx's Medication Instructions Recorded Acetaminophen with Codeine 1 tab PO Q6H PRN 3 Days #12 tab 06/05/19 [Tylenol w/codeine #3] Allergies Allergy/AdvReac Type Severity Reaction Status Date / Time No Known Allergies Allergy Verified 10/25/21 12:36 Review of Systems ROS Statement: Those systems with pertinent positive or pertinent negative responses have been documented in the HPI. ROS Other: All systems not noted in ROS Statement are negative. Past Medical History Past Medical History: Diabetes Mellitus, GERD/Reflux, Hypertension Additional Past Medical History / Comment(s): hx. migraines, heavy, frequent periods History of Any Multi-Drug Resistant Organisms: None Reported Past Surgical History: Breast Surgery, Hysterectomy Additional Past Surgical History / Comment(s): breast biopsy, D & C Past Anesthesia/Blood Transfusion Reactions: No Reported Reaction Past Psychological History: Anxiety Smoking Status: Never smoker Past Alcohol Use History: Daily Past Drug Use History: None Reported - Past Family History Father Family Medical History: No Reported History Mother Family Medical History: AFIB, Hypertension General Exam Limitations: no limitations General appearance: alert, in no apparent distress Head exam: Present: atraumatic, normocephalic, normal inspection ENT exam: Present: normal exam, mucous membranes moist Neck exam: Present: normal inspection, full ROM. Absent: tenderness, meningismus, lymphadenopathy Respiratory exam: Present: normal lung sounds bilaterally. Absent: respiratory distress, wheezes, rales, rhonchi, stridor Cardiovascular Exam: Present: tachycardia, irregular rhythm, normal heart sounds. Absent: regular rate, normal rhythm, systolic murmur, diastolic murmur, rubs, gallop, clicks Neurological exam: Present: alert Skin exam: Present: warm, dry, intact, normal color. Absent: rash Course Vital Signs 10/25/21 12:32 Temperature 98.0 F Pulse Rate 108 H Respiratory 16 Rate Blood Pressure 185/96 O2 Sat by Pulse 99 Oximetry EKG Findings - EKG Comments: EKG Findings:: EKG performed at 12:38-year-old fibrillation rate of 98 QRS 87 QT/QTC 3:30/35 Medical Decision Making - Medical Decision Making 56 show female presented from for palpitations ingestion. Patient's found to be in new onset A. fib ablation a rate in the 130s. Patient was started on Cardize m bolus and infusion. Patient is found to have hypomagnesemia patient was given meant wheezing at this time. Patient was also started on heparin as she is new onset H fibrillation. She'll consult to cardiology I did discuss case with Dr. Shea. Patient does have transaminitis which is chronic in nature. - Lab Data Result diagrams: 10/25/21 13:12 10/25/21 13:12 Lab Results 10/25/21 10/25/21 10/25/21 Range/Units 13:12 13:12 13:12 WBC 6.2 (3.8-10.6) k/uL RBC 5.16 (3.80-5.40) m/uL Hgb 16.6 H (11.4-16.0) gm/dL Hct 51.5 H (34.0-46.0) % MCV 99.6 (80.0-100.0) fL MCH 32.1 (25.0-35.0) pg MCHC 32.2 (31.0-37.0) g/dL RDW 12.1 (11.5-15.5) % Plt Count 166 (150-450) k/uL MPV 7.6 Neutrophils % 69 % Lymphocytes % 20 % Monocytes % 5 % Eosinophils % 2 % Basophils % 1 % Neutrophils # 4.3 (1.3-7.7) k/uL Lymphocytes # 1.3 (1.0-4.8) k/uL Monocytes # 0.3 (0-1.0) k/uL Eosinophils # 0.1 (0-0.7) k/uL Basophils # 0.1 (0-0.2) k/uL PT 11.5 (9.0-12.0) sec INR 1.1 (<1.2) APTT 26.6 (22.0-30.0) sec Sodium 133 L (137-145) mmol/L Potassium 4.8 (3.5-5.1) mmol/L Chloride 98 (98-107) mmol/L Carbon Dioxide 20 L (22-30) mmol/L Anion Gap 15 mmol/L BUN 10 (7-17) mg/dL Creatinine 0.48 L (0.52-1.04) mg/dL Est GFR (CKD-EPI)AfAm >90 (>60 ml/min/1.73 sqM) Est GFR (CKD-EPI)NonAf >90 (>60 ml/min/1.73 sqM) Glucose 317 H (74-99) mg/dL Calcium 10.8 H (8.4-10.2) mg/dL Magnesium 1.3 L (1.6-2.3) mg/dL Total Bilirubin 2.1 H (0.2-1.3) mg/dL AST 164 H (14-36) U/L ALT 239 H (4-34) U/L Alkaline Phosphatase 199 H (38-126) U/L Troponin I (0.000-0.034) ng/mL NT-Pro-B Natriuret Pep pg/mL Total Protein 8.8 H (6.3-8.2) g/dL Albumin 4.8 (3.5-5.0) g/dL Lipase 111 (23-300) U/L 10/25/21 10/25/21 Range/Units 13:12 13:12 WBC (3.8-10.6) k/uL RBC (3.80-5.40) m/uL Hgb (11.4-16.0) gm/dL Hct (34.0-46.0) % MCV (80.0-100.0) fL MCH (25.0-35.0) pg MCHC (31.0-37.0) g/dL RDW (11.5-15.5) % Plt Count (150-450) k/uL MPV Neutrophils % % Lymphocytes % % Monocytes % % Eosinophils % % Basophils % % Neutrophils # (1.3-7.7) k/uL Lymphocytes # (1.0-4.8) k/uL Monocytes # (0-1.0) k/uL Eosinophils # (0-0.7) k/uL Basophils # (0-0.2) k/uL PT (9.0-12.0) sec INR (<1.2) APTT (22.0-30.0) sec Sodium (137-145) mmol/L Potassium (3.5-5.1) mmol/L Chloride (98-107) mmol/L Carbon Dioxide (22-30) mmol/L Anion Gap mmol/L BUN (7-17) mg/dL Creatinine (0.52-1.04) mg/dL Est GFR (CKD-EPI)AfAm (>60 ml/min/1.73 sqM) Est GFR (CKD-EPI)NonAf (>60 ml/min/1.73 sqM) Glucose (74-99) mg/dL Calcium (8.4-10.2) mg/dL Magnesium (1.6-2.3) mg/dL Total Bilirubin (0.2-1.3) mg/dL AST (14-36) U/L ALT (4-34) U/L Alkaline Phosphatase (38-126) U/L Troponin I <0.012 (0.000-0.034) ng/mL NT-Pro-B Natriuret Pep 1110 pg/mL Total Protein (6.3-8.2) g/dL Albumin (3.5-5.0) g/dL Lipase (23-300) U/L Critical Care Time Critical Care Time: Yes Total Critical Care Time: 35 Disposition Clinical Impression: New onset atrial fibrillation, Atrial fibrillation with RVR, Hyperglycemia Disposition: ADMITTED IP TO THIS [facility] Condition: Stable Referrals: Bubba Cruz MD [Primary Care Provider] - 1-2 days Time of Disposition: 14:30
[2021-10-25] MEDS ORDERED: NITROGLYCERIN SL TABS 0.4 MG TAB SUBLINGUAL PRN (14:51)
[2021-10-25] MEDS ORDERED: MAGNESIUM OXIDE 400 MG TAB PO STA (14:56)
[2021-10-25] MEDS ORDERED: ALPRAZolam 0.25 MG TAB PO PRN (15:09)
[2021-10-25 15:51] LABS: Basophils # (A) 0.1 k/uL (0-0.2); Basophils % (A) 1 %; Eosinophils # (A) 0.2 k/uL (0-0.7); Eosinophils % (A) 3 %; HCT 49.1 % (34.0-46.0); HGB 16.3 gm/dL (11.4-16.0); Lymphocytes # (A) 1.5 k/uL (1.0-4.8); Lymphocytes % (A) 25 %; MCH 33.1 pg (25.0-35.0); MCHC 33.1 g/dL (31.0-37.0); MCV 100.1 fL (80.0-100.0); Mean Platelet Volume 7.4; Monocytes # (A) 0.3 k/uL (0-1.0); Monocytes % (A) 5 %; Neutrophils % (A) 64 %; Platelet Count 188 k/uL (150-450); RBC 4.91 m/uL (3.80-5.40); RDW 12.8 % (11.5-15.5); WBC 6.2 k/uL (3.8-10.6)
[2021-10-25 15:56] LABS: INR 1.2 (<1.2); Partial Thromboplastin Time 78.2 sec (22.0-30.0); Prothrombin Time 12.3 sec (9.0-12.0)
[2021-10-25 18:56] LABS: Glucose,Whole Blood 313 mg/dL (75-99)
[2021-10-25] MEDS: INSULIN ASPART (NovoLOG) 100 UNIT/ML VIAL SQ SCH ×2 (19:41→21:55)
[2021-10-25] MEDS ORDERED: NALOXONE 0.4 MG/ML 1 ML VIAL IV PRN (21:25)
[2021-10-25] MEDS ORDERED: ONDANSETRON 4 MG/2 ML VIAL IVP PRN (21:25)
[2021-10-25] MEDS ORDERED: MELATONIN 3 MG TABLET PO PRN (21:25)
[2021-10-25] MEDS ORDERED: LACTULOSE 20 GM/30 ML CUP PO PRN (21:25)
[2021-10-25] MEDS ORDERED: CALCIUM CARBONATE 500 MG CHEWABLE PO PRN (21:25)
--- NOTE | 2021-10-25 21:28 | P.HPIM ---
History of Present Illness H&P Date: 10/25/21 Chief Complaint: Palpitations This is a pleasant 56-year-old patient follows with Dr. Bubba Cruz. Chronic stable medical conditions include diabetes, GERD, hypertension, migraines, menorrhagia. Anxiety. Patient's had occasional episodes of palpitation. Last night she felt some indigestion and took some Prilosec. [place] her heart to be regular. This morning Phill to be more irregular. There was no dizziness, lightheadedness. Was feeling a bit out of breath and rather tired. Decided to come in. Patient's found to be in atrial fibrillation with a heart rate around 117. Put on a Cardizem drip. Patient does take not a lot of home. Patient drinks about 2 c ups of coffee in the morning 1 [employer] and then one or 2 glasses of wine at night. Denies use of any other recreational drugs. Review of systems: GEN.: Tired EYES: None HEENT: None NECK: None RESPIRATORY: None CARDIOVASCULAR: As above GASTROINTESTINAL: GERD GENITOURINARY: None MUSCULOSKELETAL: None LYMPHATICS: None HEMATOLOGICAL: None PSYCHIATRY: Anxiety NEUROLOGICAL: None Past medical history to include: Diabetes, GERD, hypertension, migraines, heavy and frequent menstrual periods Anxiety Social history: Does not smoke. . Slight dependent. Drinks one or 2 glasses of wine at night. Family history: Atrial fibrillation, hypertension Physical examination: VITAL SIGNS: 98, 117, 16, 159/93, 98% room air upon presentation GENERAL: BMI 27.4, laying in bed, awake not in distress. EYES: Pupils equal. Conjunctiva normal. HEENT: External appearance of nose and ears normal, oral cavity grossly normal. NECK: JVD not raised; masses not palpable. HEART: Heart sounds irregular; no edema. LUNGS: Respiratory rate normal; clear to auscultation. ABDOMEN: Soft, nontender, liver spleen not palpable, no masses palpable. PSYCH: Alert and oriented x3; mood and affect slightly anxiousl. MUSCULOSKELETAL:No Clubbing/cyanosis;muscles-grossly intact NEUROLOGICAL: Cranial nerves grossly intact; no facial asymmetry, power and sensation grossly intact. LYMPHATICS: No lymph nodes palpable in the axilla and neck INVESTIGATIONS, reviewed in the clinical context: White count 6.2 hemoglobin 16.3 platelets 188 sodium 133 potassium 4.8 creatinine 0.48 AST 164 ALT 239 blood glucose 317 EKG tracing personally reviewed by me-atrial fibrillation. Rate 98 Chest x-ray film personally reviewed by me-borderline cardiomegaly Assessment and plan: -New onset atrial fibrillation with rapid ventricular rate, symptomatic Telemetry. IV Cardizem drip. Continue nadolol 2-D echocardiogram. -Essential hypertension nadolol 40 mg twice a day -Diabetes mellitus type 2, on oral hypoglycemic Metformin 500 mg twice a day, Amaryl 2 mg twice a day. Diabetic diet. Accu- Cheks with sliding scale insulin. -Hepatitis, type unknown. Patient has macrocytosis on the blood. Patient could have alcoholic hepatitis. Hepatic steatosis possible. Pending renal ultrasound. Acute hepatitis panel -GERD Pepcid 20 mg twice a day -Anxiety not otherwise specified Xanax 0.25 by mouth 3 times a day when necessary Telemetry. IV Cardizem drip. Beta dulce maria. 2-D echocardiogram. Hepatic ul trasound. Acute hepatitis panel. Cardiology consultation. Discussed with patient. Past Medical History Past Medical History: Diabetes Mellitus, GERD/Reflux, Hypertension Additional Past Medical History / Comment(s): hx. migraines, heavy, frequent periods History of Any Multi-Drug Resistant Organisms: None Reported Past Surgical History: Breast Surgery, Hysterectomy Additional Past Surgical History / Comment(s): breast biopsy, D & C Past Anesthesia/Blood Transfusion Reactions: No Reported Reaction Past Psychological History: Anxiety Smoking Status: Never smoker Past Alcohol Use History: Daily Past Drug Use History: None Reported - Past Family History Father Family Medical History: No Reported History Mother Family Medical History: AFIB, Hypertension Medications and Allergies Home Medications Medication Instructions Recorded Confirmed Type Nadolol [Corgard] 40 mg PO BID 10/06/14 10/25/21 History ALPRAZolam [Xanax] 0.25 mg PO TID PRN 06/04/19 10/25/21 History metFORMIN HCL [Glucophage] 500 mg PO HS 06/04/19 10/25/21 History Glimepiride [Amaryl] 2 mg PO BID 10/25/21 10/25/21 History Allergies Allergy/AdvReac Type Severity Reaction Status Date / Time No Known Allergies Allergy Verified 10/25/21 15:48 Physical Exam Vitals: Vital Signs Temp Pulse Resp BP Pulse Ox 10/25/21 19:00 97 18 133/77 98 10/25/21 18:00 88 18 134/86 98 10/25/21 17:00 80 18 135/89 98 10/25/21 16:00 67 18 98 10/25/21 15:00 71 18 131/91 98 10/25/21 14:40 76 16 131/91 97 10/25/21 14:30 79 18 159/93 98 10/25/21 14:20 117 H 16 159/93 98 10/25/21 14:10 81 16 159/93 98 10/25/21 14:00 88 16 161/103 98 10/25/21 12:32 98.0 F 108 H 16 185/96 99 Intake and Output 10/25/21 10/25/21 10/25/21 06:59 14:59 22:59 Intake Total 31.354 Balance 31.354 Intake: Intake, IV Titration 31.354 Amount Heparin Sod,Pork in 0.45% 31.354 NaCl 25,000 unit In 0.45 % NaCl 1 250ml.bag @ 12 UNITS/KG/HR 9.798 mls/hr IV .Q24H [facility] Rx#: [id number] Other: Weight 81.647 kg Results CBC & Chem 7: 10/25/21 15:26 10/25/21 13:12 Labs: Abnormal Lab Results - Last 24 Hours (Table) 10/25/21 10/25/21 10/25/21 Range/Units 13:12 13:12 15:26 Hgb 16.6 H 16.3 H (11.4-16.0) gm/dL Hct 51.5 H 49.1 H (34.0-46.0) % MCV 100.1 H (80.0-100.0) fL PT (9.0-12.0) sec INR (<1.2) APTT (22.0-30.0) sec Sodium 133 L (137-145) mmol/L Carbon Dioxide 20 L (22-30) mmol/L Creatinine 0.48 L (0.52-1.04) mg/dL Glucose 317 H (74-99) mg/dL POC Glucose (mg/dL) (75-99) mg/dL Calcium 10.8 H (8.4-10.2) mg/dL Magnesium 1.3 L (1.6-2.3) mg/dL Total Bilirubin 2.1 H (0.2-1.3) mg/dL AST 164 H (14-36) U/L ALT 239 H (4-34) U/L Alkaline Phosphatase 199 H (38-126) U/L Total Protein 8.8 H (6.3-8.2) g/dL 10/25/21 10/25/21 Range/Units 15:26 18:54 Hgb (11.4-16.0) gm/dL Hct (34.0-46.0) % MCV (80.0-100.0) fL PT 12.3 H (9.0-12.0) sec INR 1.2 H (<1.2) APTT 78.2 H (22.0-30.0) sec Sodium (137-145) mmol/L Carbon Dioxide (22-30) mmol/L Creatinine (0.52-1.04) mg/dL Glucose (74-99) mg/dL POC Glucose (mg/dL) 313 H (75-99) mg/dL Calcium (8.4-10.2) mg/dL Magnesium (1.6-2.3) mg/dL Total Bilirubin (0.2-1.3) mg/dL AST (14-36) U/L ALT (4-34) U/L Alkaline Phosphatase (38-126) U/L Total Protein (6.3-8.2) g/dL
[2021-10-25 21:44] LABS: Glucose,Whole Blood 265 mg/dL (75-99)
[2021-10-25] MEDS: metFORMIN 500 MG TAB PO SCH (21:54)
[2021-10-25] MEDS: GLIMEPIRIDE 2 MG TAB PO SCH (21:55)
[2021-10-25] MEDS: ALPRAZolam 0.25 MG TAB PO SCH ×2 (21:55→22:14)
[2021-10-26 08:06] LABS: Glucose,Whole Blood 319 mg/dL (75-99)
[2021-10-26] MEDS: PANTOPRAZOLE 40 MG TABLET PO SCH (08:10)
[2021-10-26] MEDS: ALPRAZolam 0.25 MG TAB PO SCH ×3 (08:10→21:23)
[2021-10-26] MEDS: metFORMIN 500 MG TAB PO SCH ×3 (08:11→17:20)
[2021-10-26] MEDS: INSULIN ASPART (NovoLOG) 100 UNIT/ML VIAL SQ SCH ×4 (08:11→21:23)
[2021-10-26] MEDS: GLIMEPIRIDE 2 MG TAB PO SCH ×2 (08:11→21:23)
[2021-10-26] MEDS ORDERED: ASPIRIN 325 MG TAB PO SCH (09:00)
--- NOTE | 2021-10-26 09:15 | P.CRDCN ---
History of Present Illness History of present illness: This is a 56 year old female with a past medical history of hypertension, type 2 diabetes, GERD, and anxiety. 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 We have been consulted for atrial fibrillation. She presents to the emergency department with complaints of palpitations, shortness breath and indigestion. Patient states she woke up yesterday around 2:00AM with some indigestion. She took Tums and omeprazole, this improved her symptoms, she went back to sleep. She then woke up in the morning and had symptoms of her heart racing/skipping a beat. She also felt that she could not take a deep breath, felt slightly lighteaded. She also noted that her blood pressure was elevated BP 200s/60s, it reduced to SBP 180s. She went to the ER for further She denies any chest pain, shortness of breath, dizziness, syncope or near syncope. She denies any history of CAD, [place], Stroke/TIA, irregular heart rhythm. Family history includes mother has history of atrial fibrillation. She denies any tobacco use. She does drink alcohol daily, currently drinks 2 glasses of wine daily, weekends about 3 glasses of wine. She has been told that her liver enzymes have been elevated by her primary care provider and an ultrasound of her abdomen was planned as an outpatient. DIAGNOSTICS EKG reveals atrial fibrillation, heart rate [address] abnormalities to suggest ischemia. Prior EKG in 2019 patient was in sinus mechanism Telemetry tracings indicate H fibrillation with heart rate 25534 Chest xray no acute cardiopulmonary process. Laboratory reviewed, troponin negative 3, WBC 6.3, hemoglobin 60.3, platelets 188, INR 1.2, sodium 133, potassium 4.8, BUN 10, serum current 0.48, magnesium 1.3, total bilirubin 2.1, AST 164, PLT 239, alkaline phosphatase 199, proBNP 1110, lipase within normal limits Current home medications include metformin, enalapril 40 mg twice a day, glimepiride, Xanax REVIEW OF SYSTEMS At the time of my exam her symptoms have resolved. CONSTITUTIONAL: Denies fever or chills. CARDIOVASCULAR: Denies chest pain, shortness of breath, orthopnea, PND or palpitations. RESPIRATORY: Denies cough. GASTROINTESTINAL: Denies abdominal pain, diarrhea, constipation, nausea or vomiting. MUSCULOSKELETAL: Denies myalgias. NEUROLOGIC: Denies numbness, tingling, headacbe or weakness. ENDOCRINE: Denies fatigue, weight change, polydipsia or polyurina. GENITOURINARY: Denies burning, hematuria or urgency with micturation. HEMATOLOGIC: Denies history of anemia or bleeding. PHYSICAL EXAMINATION Vitals 141/87, heart rate 86, afebrile, saturation 98% on room air CONSTITUTIONAL: No apparent distress. HEENT: Head is normocephalic. Pupils are equal, round. Sclerae anicteric. Mucous membranes of the mouth are moist. No JVD. No carotid bruit. CHEST EXAMINATION: Lungs are clear to auscultation. No chest wall tenderness is noted on palpation or with deep breathing. HEART EXAMINATION: Irregular rate and rhythm. S1, S2 heard. No murmurs, gallops or rub. ABDOMEN: Soft, nontender. Positive bowel sounds. EXTREMITIES: 2+ peripheral pulses, no lower extremity edema and no calf tenderness. SKIN: Warm, dry NEUROLOGIC EXAMINATION: Patient is awake, alert and oriented x3. ASSESSMENT New onset paroxysmal atrial fibrillation -[id number] score 3 Elevated LFTs Elevated T bilirubin Hypomagnesemia Type 2 Diabetes Hypertension History of GERD PLAN Obtain 2D echocardiogram Start PO Cardizem 5mg BID Stop IV Cardizem Start Eliquis 5mg BID, case management consulted for coverage Stop IV heparin Continue nadolol Check TSH Alcohol cessation discussed with patient and highly recommended If patient's heart rates are better controlled and echocardiogram with no acute findings, ok to discharge later today vs. tomorrow with follow up with Dr. Castro in 1 week. At follow up cardiology appointment after discharge further cardioversion plans if indicated will be discussed. Nurse practitioner note has been reviewed by physician. Signing provider agrees with the documented findings, assessment, and plan of care. Past Medical History Past Medical History: Diabetes Mellitus, GERD/Reflux, Hypertension Additional Past Medical History / Comment(s): hx. migraines History of Any Multi-Drug Resistant Organisms: None Reported Past Surgical History: Breast Surgery, Hysterectomy Additional Past Surgical History / Comment(s): breast biopsy, D & C Past Anesthesia/Blood Transfusion Reactions: No Reported Reaction Past Psychological History: Anxiety Smoking Status: Never smoker Past Alcohol Use History: Daily Additional Past Alcohol Use History / Comment(s): reports drinking one to two glasses of wine per day. 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 Past Drug Use History: None Reported - Past Family History Father Family Medical History: No Reported History Mother Family Medical History: AFIB, Hypertension Medications and Allergies Home Medications Medication Instructions Recorded Confirmed Type Nadolol [Corgard] 40 mg PO BID 10/06/14 10/25/21 History ALPRAZolam [Xanax] 0.25 mg PO TID PRN 06/04/19 10/25/21 History metFORMIN HCL [Glucophage] 500 mg PO HS 06/04/19 10/25/21 History Glimepiride [Amaryl] 2 mg PO BID 10/25/21 10/25/21 History Apixaban [Eliquis] 5 mg PO BID 30 Days #60 tab 10/26/21 Rx Allergies Allergy/AdvReac Type Severity Reaction Status Date / Time No Known Allergies Allergy Verified 10/25/21 15:48 Physical Exam Vitals: Vital Signs Temp Pulse Pulse Resp BP BP Pulse Ox 10/26/21 07:12 87 18 123/69 10/26/21 06:00 83 18 10/26/21 03:00 98.2 F 93 18 136/97 99 10/26/21 02:00 89 10/26/21 00:00 97.5 F L 80 18 129/94 98 10/25/21 20:00 97.0 F L 84 18 136/92 98 10/25/21 19:00 97 18 133/77 98 10/25/21 18:00 88 18 134/86 98 10/25/21 17:00 80 18 135/89 98 10/25/21 16:00 67 18 98 10/25/21 15:00 71 18 131/91 98 10/25/21 14:40 76 16 131/91 97 10/25/21 14:30 79 18 159/93 98 10/25/21 14:20 117 H 16 159/93 98 10/25/21 14:10 81 16 159/93 98 10/25/21 14:00 88 16 161/103 98 10/25/21 12:32 98.0 F 108 H 16 185/96 99 Intake and Output 10/25/21 10/26/21 10/26/21 22:59 06:59 14:59 Intake Total 31.354 55.794 Balance 31.354 55.794 Intake: Intake, IV Titration 31.354 55.794 Amount Heparin Sod,Pork in 0.45% 31.354 55.794 NaCl 25,000 unit In 0.45 % NaCl 1 250ml.bag @ 12 UNITS/KG/HR 9.798 mls/hr IV .Q24H [facility] Rx#: [id number] Other: # Voids 1 Weight 81.647 kg Results 10/25/21 15:26 10/25/21 13:12 Cardiac Enzymes 10/25/21 10/25/21 10/25/21 Range/Units 13:12 13:12 15: AST 164 H (14-36) U/L Troponin I <0.012 <0.012 (0.000-0.034) ng/mL 10/25/21 Range/Units 18:51 AST (14-36) U/L Troponin I <0.012 (0.000-0.034) ng/mL Coagulation 10/25/21 10/25/21 10/25/21 Range/Units 13:12 15:26 22: PT 11.5 12.3 H (9.0-12.0) sec APTT 26.6 78.2 H 32.1 H (22.0-30.0) sec 10/26/21 Range/Units 04:49 PT (9.0-12.0) sec APTT 51.6 H (22.0-30.0) sec CBC 10/25/21 10/25/21 Range/Units 13:12 15: WBC 6.2 6.2 (3.8-10.6) k/uL RBC 5.16 4.91 (3.80-5.40) m/uL Hgb 16.6 H 16.3 H (11.4-16.0) gm/dL Hct 51.5 H 49.1 H (34.0-46.0) % Plt Count 166 188 (150-450) k/uL Comprehensive Metabolic Panel 10/25/21 Range/Units 13:12 Sodium 133 L (137-145) mmol/L Potassium 4.8 (3.5-5.1) mmol/L Chloride 98 (98-107) mmol/L Carbon Dioxide 20 L (22-30) mmol/L BUN 10 (7-17) mg/dL Creatinine 0.48 L (0.52-1.04) mg/dL Glucose 317 H (74-99) mg/dL Calcium 10.8 H (8.4-10.2) mg/dL AST 164 H (14-36) U/L ALT 239 H (4-34) U/L Alkaline Phosphatase 199 H (38-126) U/L Total Protein 8.8 H (6.3-8.2) g/dL Albumin 4.8 (3.5-5.0) g/dL Current Medications Generic Name Dose Route Start Last Admin Trade Name Freq PRN Reason Stop Dose Admin Acetaminophen 650 mg 10/25/21 15:09 Acetaminophen Tab 325 Mg Tab PO Q8H PRN Pain Alprazolam 0.25 mg 10/25/21 21:30 10/25/21 22:14 Alprazolam 0.25 Mg Tab PO Not Given TID [facility] Aspirin 325 mg 10/26/21 09:00 Aspirin 325 Mg Tab PO DAILY [facility] Calcium Carbonate/Glycine 1,000 mg 10/25/21 21:25 Calcium Carbonate 500 Mg Chewable PO Q4HR PRN Dyspepsia Glimepiride 2 mg 10/25/21 21:00 10/25/21 21:55 Glimepiride 2 Mg Tab PO 2 mg BID [facility] Administration Heparin Sodium (Porcine) 0 unit 10/25/21 13:37 10/25/21 23:59 Heparin Sodium 1,000 Un/Ml (10ml Vl) IV 4,000 unit PER PROTOCOL PRN Administration Low PTT Protocol Heparin Sodium/Sodium Chloride 250 mls @ 9.798 mls/hr 10/25/21 13:45 10/26/21 00:00 25,000 unit/ Sodium Chloride IV 13 units/kg/hr .Q24H [facility] 10.614 mls/hr Titration Protocol 12 UNITS/KG/HR Diltiazem HCl 125 mg/ Sodium 125 mls @ 5 mls/hr 10/25/21 13:45 10/25/21 13:59 Chloride IV 5 mg/hr .Q24H [facility] 5 mls/hr Administration 5 MG/HR Insulin Aspart 0 unit 10/25/21 17:30 10/25/21 21:55 Insulin Aspart (Novolog) 100 Unit/Ml Vial SQ 4 unit ACHS [facility] Administration Protocol Lactulose 20 gm 10/25/21 21:25 Lactulose 20 Gm/30 Ml Cup PO DAILY PRN Constipation Melatonin 3 mg 10/25/21 21:25 10/26/21 03:29 Melatonin 3 Mg Tablet PO 3 mg HS PRN Administration Insomnia Metformin HCl 1,000 mg 10/25/21 21:00 10/25/21 21:54 Metformin 500 Mg Tab PO 1,000 mg BID [facility] Administration Nadolol 40 mg 10/25/21 21:00 10/25/21 21:55 Nadolol 20 Mg Tab PO 40 mg BID [facility] Administration Naloxone HCl 0.2 mg 10/25/21 21:25 Naloxone 0.4 Mg/Ml 1 Ml Vial IV Q2M PRN Opioid Reversal Nitroglycerin 0.4 mg 10/25/21 14:51 Nitroglycerin Sl Tabs 0.4 Mg Tab SUBLINGUAL Q5M PRN Chest Pain Ondansetron HCl 4 mg 10/25/21 21:25 Ondansetron 4 Mg/2 Ml Vial IVP Q8HR PRN Nausea And Vomiting Pantoprazole Sodium 40 mg 10/26/21 07:30 Pantoprazole 40 Mg Tablet PO AC-BRKFST [facility] Intake and Output 10/25/21 10/26/21 10/26/21 22:59 06:59 14:59 Intake Total 31.354 55.794 Balance 31.354 55.794 Intake: Intake, IV Titration 31.354 55.794 Amount Heparin Sod,Pork in 0.45% 31.354 55.794 NaCl 25,000 unit In 0.45 % NaCl 1 250ml.bag @ 12 UNITS/KG/HR 9.798 mls/hr IV .Q24H [facility] Rx#: [id number] Other: # Voids 1 Weight 81.647 kg 10/25/21 15:26 10/25/21 13:12
--- NOTE | 2021-10-26 09:39 | US ---
EXAMINATION TYPE: US abdomen limited DATE OF EXAM: 10/26/2021 COMPARISON: CT dated 06/04/2019 CLINICAL HISTORY: Elevated liver enzymes. EXAM MEASUREMENTS: Liver Length: 21.2 cm Gallbladder Wall: 0.2 cm CBD: 0.2 cm Right Kidney: 11.5 x 5.2 x 5.8 cm Large body habitus, technically difficult ultrasound. Pancreas: Obscured by bowel gas Liver: Increased attenuation, decreased visualization of vessels suggestive of fatty infiltrate, enl arged Gallbladder: wnl Evidence for sonographic Mckeon's sign: No CBD: wnl Right Kidney: No hydronephrosis or masses seen Enlarged liver measuring 21.2 cm with increased hepatic parenchymal echogenicity suggestive of hepati c steatosis. No definite hepatic focal lesion. Grossly unremarkable gallbladder. No pericholecystic f luid or abnormal wall thickening. Negative sonographic Mckeon's sign. Unremarkable CBD and right kidn ey. IMPRESSION: Technically difficult ultrasound. Enlarged liver with suspected hepatic steatosis, please correlate w ith liver function tests.
[2021-10-26 09:51] LABS: Hepatitis A Antibody IgM Nonreactive (Nonreactive); Hepatitis B Core IgM Nonreactive (Nonreactive); Hepatitis B Surface Antigen Nonreactive (Nonreactive); Hepatitis C IgG Antibody Nonreactive (Nonreactive)
[2021-10-26 10:25] LABS: ALT 169 U/L (4-34); AST 139 U/L (14-36); Alkaline Phosphatase 169 U/L (38-126)
[2021-10-26] MEDS: DILTIAZEM ORAL 30 MG TAB PO SCH ×3 (10:30→21:23)
[2021-10-26] MEDS: APIXABAN 5 MG TAB PO SCH ×2 (10:30→21:23)
--- NOTE | 2021-10-26 11:03 | CA ---
Transthoracic Echo Report Name: Geovanna Day Age: 56 Gender: F : 1965 Exam Date: 10/26/2021 07:48 Exam Location: [place] [facility] Ht (in): 68 Wt (lb): 180 Ordering Physician: Néstor Hdz Attending/Referring Phys: [id number], Wilder Patternator Luci Bowden, VISHNU Procedure CPT: Indications: afib Cardiac Hx: Technical Quality: Fair Contrast 1: Total Dose (mL): Contrast 2: Total Dose (mL): MEASUREMENTS (Male / Female) Normal Values 2D ECHO LV Diastolic Diameter PLAX 4.2 cm 4.2 - 5.9 / 3.9 - 5.3 cm LV Systolic Diameter PLAX 3.5 cm IVS Diastolic Thickness 1.3 cm 0.6 - 1.0 / 0.6 - 0.9 cm LVPW Diastolic Thickness 1.3 cm 0.6 - 1.0 / 0.6 - 0.9 cm LV Relative Wall Thickness 0.6 RV Internal Dim ED PLAX 2.7 cm LA Systolic Diameter LX 3.2 cm 3.0 - 4.0 / 2.7 - 3.8 cm LA Volume 43.3 cm??? 18 - 58 / 22 - 52 cm??? M-MODE Aortic Root Diameter MM 3.1 cm MV E Point Septal Separation 0.5 cm AV Cusp Separation MM 1.2 cm DOPPLER AV Peak Velocity 115.4 cm/s AV Peak Gradient 5.3 mmHg MV Area PHT 4.6 cm??? MV Deceleration Time 144.3 ms TR Peak Velocity 168.1 cm/s TR Peak Gradient 11.3 mmHg Right Ventricular Systolic Press 16.3 mmHg FINDINGS Left Ventricle Left ventricular ejection fraction is estimated at 45 %. Left ventricular cavity size normal. Mild concentric left ventricular hypertrophy. Right Ventricle Normal right ventricular size and function. Right ventricular systolic pressure within normal limits. Right Atrium Normal right atrial size. Left Atrium Normal left atrial size. No evidence for an atrial septal defect. Mitral Valve Mitral annular calcification. Mild mitral regurgitation. Aortic Valve Focal thickening of the aortic valve cusps. No aortic valve stenosis or regurgitation. Tricuspid Valve Mild tricuspid regurgitation. Pulmonic Valve Pulmonic valve not well visualized. Pericardium Normal pericardium. Aorta Normal size aortic root and proximal ascending aorta. CONCLUSIONS Mild LV systolic dysfunction with an ejection fraction of 45% Mild mitral regurgitation Previewed by: Dr. Carlos Garcia MD (Electronically Signed) Final Date: 26 Oct 2021 11:02
[2021-10-26 11:26] LABS: African American GFR (CKD) >90 (>60 ml/min/1.73 sqM); Anion Gap 15 mmol/L; Blood Urea Nitrogen 10 mg/dL (7-17); Calcium 9.9 mg/dL (8.4-10.2); Carbon Dioxide 21 mmol/L (22-30); Chloride 98 mmol/L (98-107); Glucose 311 mg/dL (74-99); Magnesium 1.5 mg/dL (1.6-2.3); Non-African American GFR(CKD) >90 (>60 ml/min/1.73 sqM); Potassium 4.5 mmol/L (3.5-5.1); Sodium 134 mmol/L (137-145)
[2021-10-26 12:43] LABS: Glucose,Whole Blood 275 mg/dL (75-99)
[2021-10-26 12:51] LABS: T4, Free (Free Thyroxine) 2.58 ng/dL (0.78-2.19)
[2021-10-26 13:01] LABS: Chol/HDL Ratio 6.56 Ratio; LDL Cholesterol,Calculated 193.6 mg/dL (0.0-131.0)
[2021-10-26] MEDS: ACETAMINOPHEN TAB 325 MG TAB PO PRN (14:30)
--- NOTE | 2021-10-26 16:38 | P.PN ---
Progress Note - Text Progress Note Date: 10/26/21 Chief Complaint: Palpitations This is a pleasant 56-year-old patient follows with Dr. Bubba Cruz. Chronic stable medical conditions include diabetes, GERD, hypertension, migraines, menorrhagia. Anxiety. Patient's had occasional episodes of palpitation. Last night she felt some indigestion and took some Prilosec. [place] her heart to be regular. This morning [place] to be more irregular. There was no dizziness, lightheadedness. Was feeling a bit out of breath and rather tired. Decided to come in. Patient's found to be in atrial fibrillation with a heart rate around 117. Put on a Cardizem drip. Patient does take not a lot of home. Patient drinks about 2 cups of coffee in the morning 1 [employer] and then one or 2 glasses of wine at night. Denies use of any other recreational drugs. October 26: Heart rate better controlled. Feels a bit tired. Patient increase activity. Accu-Cheks have been running high. Patient has been inconsistent with her metformin at home. Increase to 500 mg 3 times a day today. Also take it with meals to prevent diarrhea. Also discussed the results of hepatic ultrasound. We will have the patient follow up with Dr. Francisca Garcia. Active Medications Acetaminophen (Acetaminophen Tab 325 Mg Tab) 650 mg PO Q8H PRN PRN Reason: Pain Last Admin: 10/26/21 14:30 Dose: 650 mg Documented by: Alprazolam (Alprazolam 0.25 Mg Tab) 0.25 mg PO TID [facility] Last Admin: 10/26/21 14:30 Dose: 0.25 mg Documented by: Apixaban (Apixaban 5 Mg Tab) 5 mg PO BID [facility]; Protocol Last Admin: 10/26/21 10:30 Dose: 5 mg Documented by: Calcium Carbonate/Glycine (Calcium Carbonate 500 Mg Chewable) 1,000 mg PO Q4HR PRN PRN Reason: Dyspepsia Diltiazem HCl (Diltiazem Oral 30 Mg Tab) 30 mg PO TID [facility] Last Admin: 10/26/21 16:27 Dose: 30 mg Documented by: Glimepiride (Glimepiride 2 Mg Tab) 2 mg PO BID [facility] Last Admin: 10/26/21 08:11 Dose: 2 mg Documented by: Insulin Aspart (Insulin Aspart (Novolog) 100 Unit/Ml Vial) 0 unit SQ ACHS [facility]; Protocol Last Admin: 10/26/21 14:29 Dose: Not Given Documented by: Lactulose (Lactulose 20 Gm/30 Ml Cup) 20 gm PO DAILY PRN PRN Reason: Constipation Melatonin (Melatonin 3 Mg Tablet) 3 mg PO HS PRN PRN Reason: Insomnia Last Admin: 10/26/21 03:29 Dose: 3 mg Documented by: Metformin HCl (Metformin 500 Mg Tab) 500 mg PO TID-W/MEALS [facility] Last Admin: 10/26/21 14:30 Dose: 500 mg Documented by: Nadolol (Nadolol 20 Mg Tab) 40 mg PO BID [facility] Last Admin: 10/26/21 08:10 Dose: 40 mg Documented by: Naloxone HCl (Naloxone 0.4 Mg/Ml 1 Ml Vial) 0.2 mg IV Q2M PRN PRN Reason: Opioid Reversal Nitroglycerin (Nitroglycerin Sl Tabs 0.4 Mg Tab) 0.4 mg SUBLINGUAL Q5M PRN PRN Reason: Chest Pain Ondansetron HCl (Ondansetron 4 Mg/2 Ml Vial) 4 mg IVP Q8HR PRN PRN Reason: Nausea And Vomiting Pantoprazole Sodium (Pantoprazole 40 Mg Tablet) 40 mg PO AC-BRKFST [facility] Last Admin: 10/26/21 08:10 Dose: 40 mg Documented by: Past medical history to include: Diabetes, GERD, hypertension, migraines, heavy and frequent menstrual periods Anxiety Social history: Does not smoke. . Slight dependent. Drinks one or 2 glasses of wine at night. Family history: Atrial fibrillation, hypertension Physical examination: VITAL SIGNS: 98.1, 89, 16, 133/83, 97% room air GENERAL: Sitting up in a chair, awake EYES: Pupils equal. Conjunctiva normal. HEENT: External appearance of nose and ears normal, oral cavity grossly normal. NECK: JVD not raised; masses not palpable. HEART: Heart sounds irregular; no edema. LUNGS: Respiratory rate normal; clear to auscultation. ABDOMEN: Soft, nontender, liver spleen not palpable, no masses palpable. PSYCH: Alert and oriented x3; mood and affect slightly anxiousl. MUSCULOSKELETAL:No Clubbing/cyanosis;muscles-grossly intact INVESTIGATIONS, reviewed in the clinical context: 2-D echocardiogram: EF 45% Liver ultrasound: Enlarged liver with suspected hepatic steatosis. Potassium 4.5 magnesium 1.5 AST 139 ALT was 69 LDL 193 TSH 7.8. T4 2 0.5 Acute hepatitis screen: Negative White count 6.2 hemoglobin 16.3 platelets 188 sodium 133 potassium 4.8 creatinine 0.48 AST 164 ALT 239 blood glucose 317 EKG tracing personally reviewed by me-atrial fibrillation. Rate 98 Chest x-ray film personally reviewed by me-borderline cardiomegaly Assessment and plan: -New onset atrial fibrillation with rapid ventricular rate, symptomatic: Better controlled Telemetry. IV Cardizem drip discontinued. Cardizem 30 mg 3 times a day.. nadolol -Essential hypertension nadolol 40 mg twice a day -Diabetes mellitus type 2, on oral hypoglycemic, uncontrolled with hyperglycemia Increase Metformin 500 mg 3 times a day, Amaryl 2 mg twice a day. Diabetic diet. Accu-Cheks with sliding scale insulin. -Likely hepatic steatosis. Continue metformin. Acute hepatitis panel negative. Follow-up outpatient GI. Counseled against alcohol. -GERD Pepcid 20 mg twice a day -Anxiety not otherwise specified Xanax 0.25 by mouth 3 times a day when necessary -Hyperlipidemia Lipitor 40 mg daily at bedtime Increase metformin 500 mg 3 times a day. Lipitor 40 mg daily at bedtime. Counseled about alcohol. Cardizem changed to by mouth. Increase activity. Follow Accu-Cheks. Dietitian consult
[2021-10-26 16:43] LABS: Glucose,Whole Blood 270 mg/dL (75-99)
[2021-10-26 21:16] LABS: Glucose,Whole Blood 244 mg/dL (75-99)
[2021-10-26] MEDS: ATORVASTATIN 40 MG TAB PO SCH ×2 (21:23→21:31)
[2021-10-27 06:10] LABS: Glucose,Whole Blood 181 mg/dL (75-99)
[2021-10-27 06:14] VITALS: RESP 16
[2021-10-27] MEDS: ACETAMINOPHEN TAB 325 MG TAB PO PRN (06:19)
[2021-10-27] MEDS: metFORMIN 500 MG TAB PO SCH ×2 (06:20→12:34)
[2021-10-27] MEDS: PANTOPRAZOLE 40 MG TABLET PO SCH (06:20)
[2021-10-27] MEDS: INSULIN ASPART (NovoLOG) 100 UNIT/ML VIAL SQ SCH ×2 (06:20→12:33)
[2021-10-27] MEDS ORDERED: METOPROLOL SUCCINATE (ER) 50 MG TAB.ER.24H PO SCH (09:15)
[2021-10-27] MEDS: APIXABAN 5 MG TAB PO SCH (09:20)
[2021-10-27] MEDS: ALPRAZolam 0.25 MG TAB PO SCH (09:20)
[2021-10-27] MEDS: GLIMEPIRIDE 2 MG TAB PO SCH (09:20)
[2021-10-27] MEDS: DILTIAZEM ORAL 30 MG TAB PO SCH (09:21)
[2021-10-27 10:56] VITALS: TEMP 96.2
[2021-10-27 12:17] LABS: Glucose,Whole Blood 284 mg/dL (75-99)
--- NOTE | 2021-10-27 12:17 | P.PN ---
Subjective This is a 56 year old female with a past medical history of hypertension, type 2 diabetes, GERD, and anxiety. 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 We have been consulted for atrial fibrillation. She presents to the emergency department with complaints of palpitations, shortness breath and indigestion. Patient states she woke up yesterday around 2:00AM with some indigestion. She took Tums and omeprazole, this improved her symptoms, she went back to sleep. She then woke up in the morning and had symptoms of her heart racing/skipping a beat. She also felt that she could not take a deep breath, felt slightly lighteaded. She also noted that her blood pressure was elevated BP 200s/60s, it reduced to SBP 180s. She went to the ER for further She denies any chest pain, shortness of breath, dizziness, syncope or near syncope. She denies any history of CAD, ID, Stroke/TIA, irregular heart rhythm. Family history includes mother has history of atrial fibrillation. She denies any tobacco use. She does drink alcohol daily, currently drinks 2 glasses of wine daily, weekends about 3 glasses of wine. She has been told that her liver enzymes have been elevated by her primary care provider and an ultrasound of her abdomen was planned as an outpatient. 10/27/2021 Patient seen and examined at bedside, no acute distress. She continues to be in atrial fibrillation HR 80s-100. She denies chest pain, shortness of breath, palpitations, dizziness or lightheadedness. Labs: TSH 7.8. Free T4 2.58 Echocardiogram revealed EF of 45%, mild mitral regurgitation PHYSICAL EXAMINATION Vitals Reviewed CONSTITUTIONAL: No apparent distress. HEENT: No JVD. No carotid bruit. CHEST EXAMINATION: Lungs are clear to auscultation. No chest wall tenderness is noted on palpation or with deep breathing. HEART EXAMINATION: Irregular rate and rhythm. S1, S2 heard. No murmurs, gallops or rub. ABDOMEN: Soft, nontender. Positive bowel sounds. EXTREMITIES: 2+ peripheral pulses, no lower extremity edema and no calf tenderness. SKIN: Warm, dry NEUROLOGIC EXAMINATION: Patient is awake, alert and oriented x3. ASSESSMENT New onset paroxysmal atrial fibrillation -[id number] score 3 Cardimyopathy, likely non-ischemic Elevated LFTs Elevated T bilirubin Hypomagnesemia Type 2 Diabetes Hypertension History of GERD Dyslipidemia Elevated TSH PLAN Discontinue nadolol and Cardizem Start metoprolol succinate 150mg BID per Dr. Vega Continue Eliquis 5mg BID, case management consulted for coverage Continue statin Alcohol cessation discussed with patient and highly recommended Rest of management per primary If patient's heart rates are better controlled ok to discharge later today with follow up with Dr. Castro in 1 week. At follow up cardiology appointment after discharge further cardioversion plans if indicated will be discussed. Nurse practitioner note has been reviewed by physician. Signing provider agrees with the documented findings, assessment, and plan of care. Objective - Vital Signs Vital signs: Vital Signs Temp 96.2 F L 10/27/21 08:00 Pulse 72 10/27/21 08:00 Resp 16 10/27/21 08:00 BP 142/72 10/27/21 08:00 Pulse Ox 98 10/27/21 08:00 Intake & Output 10/26/21 10/27/21 10/27/21 18:59 06:59 18:59 Intake Total 886.103 340 Balance 886.103 340 Weight 85.9 kg Intake: Intake, IV Titration 166.103 Amount Diltiazem 125 mg In 85.083 Sodium Chloride 0.9% 100 ml @ 5 MG/HR 5 mls/hr IV .Q24H [facility] Rx#:[id number] Heparin Sod,Pork in 0.45% 81.02 NaCl 25,000 unit In 0.45 % NaCl 1 250ml.bag @ 12 UNITS/KG/HR 9.798 mls/hr IV .Q24H [facility] Rx#: [id number] Oral 720 340 Other: # Voids 2 1 - Labs CBC & Chem 7: 10/25/21 15:26 10/26/21 04:49 Labs: Abnormal Lab Results - Last 24 Hours (Table) 10/26/21 10/26/21 10/26/21 Range/Units 04:49 04:49 12:41 POC Glucose (mg/dL) 275 H (75-99) mg/dL Hemoglobin A1c (0.0-6.0) % Triglycerides 299.00 H (0.00-149.00) mg/dL Cholesterol 299.00 H (0.00-200.00) mg/dL LDL Cholesterol, Calc 193.6 H (0.0-131.0) mg/dL VLDL Cholesterol, Calc 59.80 H (5.00-40.00) mg/dL Free T4 2.58 H (0.78-2.19) ng/dL 10/26/21 10/26/21 10/27/21 Range/Units 16:40 21:07 05:58 POC Glucose (mg/dL) 270 H 244 H 181 H (75-99) mg/dL Hemoglobin A1c (0.0-6.0) % Triglycerides (0.00-149.00) mg/dL Cholesterol (0.00-200.00) mg/dL LDL Cholesterol, Calc (0.0-131.0) mg/dL VLDL Cholesterol, Calc (5.00-40.00) mg/dL Free T4 (0.78-2.19) ng/dL 10/27/21 Range/Units 06:14 POC Glucose (mg/dL) (75-99) mg/dL Hemoglobin A1c 9.7 H (0.0-6.0) % Triglycerides (0.00-149.00) mg/dL Cholesterol (0.00-200.00) mg/dL LDL Cholesterol, Calc (0.0-131.0) mg/dL VLDL Cholesterol, Calc (5.00-40.00) mg/dL Free T4 (0.78-2.19) ng/dL
[2021-10-27 14:17] VITALS: BP 139/83; PULSE 76
[2021-10-27 14:45] VITALS: BMI 28.8
--- NOTE | 2021-10-27 19:26 | P.DS ---
Providers Date of admission: 10/25/21 14:44 Expected date of discharge: 10/27/21 Attending physician: Garcia Shea Consults: 10/25/21 14:51 Consult Physician Urgent Consulting Provider: Brionna Castro Consult Reason/Comments: New-onset atrial fibrillation Do you want consulting provider notified?: Yes Primary care physician: Bubba Cruz MD Hospital Course: Chief Complaint: Palpitations This is a pleasant 56-year-old patient follows with Dr. Bubba Cruz. Chronic stable medical conditions include diabetes, GERD, hypertension, migraines, me norrhagia. Anxiety. Patient's had occasional episodes of palpitation. Last night she felt some indigestion and took some Prilosec. [place] her heart to be regular. This morning [place] to be more irregular. There was no dizziness, lightheadedness. Was feeling a bit out of breath and rather tired. Decided to come in. Patient's found to be in atrial fibrillation with a heart rate around 117. Put on a Cardizem drip. Patient does take not a lot of home. Patient drinks about 2 cups of coffee in the morning 1 [employer] and then one or 2 glasses of wine at night. Denies use of any other recreational drugs. October 26: Heart rate better controlled. Feels a bit tired. Patient increase activity. Accu-Cheks have been running high. Patient has been inconsistent with her metformin at home. Increase to 500 mg 3 times a day today. Also take it with meals to prevent diarrhea. Also discussed the results of hepatic ultrasound. We will have the patient follow up with Dr. Francisca Garcia. October 27: Patient tolerating metformin well. Again cessation of alcohol was discussed. Lipitor to continue. Accu-Cheks. Will follow for GI. On eliquis. Discussed with patient in detail. Discussion and discharge planning more than 35 minutes Past medical history to include: Diabetes, GERD, hypertension, migraines, heavy and frequent menstrual periods Anxiety Social history: Does not smoke. . Slight dependent. Drinks one or 2 glasses of wine at night. Family history: Atrial fibrillation, hypertension Physical examination: VITAL SIGNS: 96.2, 72, 16, 139/83, 96% room air GENERAL: Sitting up in a chair, awake EYES: Pupils equal. Conjunctiva normal. HEENT: External appearance of nose and ears normal, oral cavity grossly normal. NECK: JVD not raised; masses not palpable. HEART: Heart sounds irregular; no edema. LUNGS: Respiratory rate normal; clear to auscultation. ABDOMEN: Soft, nontender, liver spleen not palpable, no masses palpable. PSYCH: Alert and oriented x3; mood and affect slightly anxiousl. MUSCULOSKELETAL:No Clubbing/cyanosis;muscles-grossly intact INVESTIGATIONS, reviewed in the clinical context: 2-D echocardiogram: EF 45% Liver ultrasound: Enlarged liver with suspected hepatic steatosis. Potassium 4.5 magnesium 1.5 AST 139 ALT was 69 LDL 193 TSH 7.8. T4 2 0.5 Acute hepatitis screen: Negative White count 6.2 hemoglobin 16.3 platelets 188 sodium 133 potassium 4.8 creatinine 0.48 AST 164 ALT 239 blood glucose 317 EKG tracing personally reviewed by me-atrial fibrillation. Rate 98 Chest x-ray film personally reviewed by me-borderline cardiomegaly Assessment and plan: -New onset atrial fibrillation with rapid ventricular rate, symptomatic: Better controlled Telemetry. IV Cardizem drip discontinued. Cardizem 30 mg 3 times a day.. nadolol -Essential hypertension nadolol 40 mg twice a day -Diabetes mellitus type 2, on oral hypoglycemic, uncontrolled with hyperglycemia Increase Metformin 500 mg 3 times a day, Amaryl 2 mg twice a day. Diabetic diet. Accu-Cheks with sliding scale insulin. -Likely hepatic steatosis. Continue metformin. Acute hepatitis panel negative. Follow-up outpatient GI. Counseled against alcohol. -GERD Pepcid 20 mg twice a day -Anxiety not otherwise specified Xanax 0.25 by mouth 3 times a day when necessary -Hyperlipidemia Lipitor 40 mg daily at bedtime Disposition: Home Plan - Discharge Summary Discharge Rx Participant: Yes New Discharge Prescriptions: New Metoprolol Succinate (ER) [Toprol XL] 150 mg PO BID 30 Days #180 tab Atorvastatin [Lipitor] 40 mg PO HS #30 tab Omeprazole 20 mg PO HS #30 tab Apixaban [Eliquis] 5 mg PO BID 30 Days #60 tab Continue ALPRAZolam [Xanax] 0.25 mg PO TID PRN PRN Reason: Anxiety Glimepiride [Amaryl] 2 mg PO BID Changed metFORMIN HCL [Glucophage] 500 mg PO TID #90 tab Discontinued Nadolol [[place]] 40 mg PO BID Discharge Medication List ALPRAZolam [Xanax] 0.25 mg PO TID PRN 06/04/19 [History] Glimepiride [Amaryl] 2 mg PO BID 10/25/21 [History] Apixaban [Eliquis] 5 mg PO BID 30 Days #60 tab 10/26/21 [Rx] Atorvastatin [Lipitor] 40 mg PO HS #30 tab 10/27/21 [Rx] Metoprolol Succinate (ER) [Toprol XL] 150 mg PO BID 30 Days #180 tab 10/27/21 [Rx] Omeprazole 20 mg PO HS #30 tab 10/27/21 [Rx] metFORMIN HCL [Glucophage] 500 mg PO TID #90 tab 10/27/21 [Rx] Follow up Appointment(s)/Referral(s): Brionna Castro MD [STAFF PHYSICIAN] - 1 Week (The office will call you with appointment date and time Cardiology) Bubba Cruz MD [Primary Care Provider] - 11/02/21 8:15 am ([employer]) Madina Garcia MD [STAFF PHYSICIAN] - 12/07/21 4:30 pm (Increased liver enzymes- [employer]) Patient Instructions/Handouts: Metoprolol (By mouth), Apixaban (By mouth), A- fib (Atrial Fibrillation) (GEN) Discharge Disposition: HOME SELF-CARE
== END 2021-10-27 14:59 | disposition home or self-care (01) ==
LOC: EC 12:06 → 3SCARD 14:44 → INTOOBSV 14:44 → 3SCARD 15:47 → UNDODISIN 10-27 14:59
PROVIDERS: ADMIT Hospitalist; ATTEND Hospitalist
DX: I48.0 Paroxysmal atrial fibrillation (principal); E11.65 Type 2 diabetes mellitus with hyperglycemia; I42.8 Other cardiomyopathies; I11.9 Hypertensive heart disease without heart failure; E83.42 Hypomagnesemia; I08.1 Rheumatic disorders of both mitral and tricuspid valves; K75.9 Inflammatory liver disease, unspecified; K21.9 Gastro-esophageal reflux disease without esophagitis; E78.5 Hyperlipidemia, unspecified; G43.909 Migraine, unspecified, not intractable, without status migrainosus; F41.9 Anxiety disorder, unspecified; Z79.84 Long term (current) use of oral hypoglycemic drugs; Z79.899 Other long term (current) drug therapy; Z90.710 Acquired absence of both cervix and uterus; Z98.890 Other specified postprocedural states; Z82.49 Family history of ischemic heart disease and other diseases of the circulatory system
CPT/HCPCS: 96376 ×2; 96365; 96366; 96368; 99285; 36415; 93005; 93306; 84439; 83880; 80061; 80053; 80048; 80074; 84443; 83690; 83735 ×2; 84075; 84450; 84460; 84484; 85025; 85610; 85730 ×2; 83036; 71046; 76705; G0378 ×3; J1644 ×2; 96374; 96375; 99291